=== PATIENT | male | born 1940 | race Caucasian/White ===

== ENCOUNTER 2022-03-12 11:09 | Inpatient (IN) | payer MEDICARE, OTHER ==
[2022-03-12 11:17] LABS: Glucose,Whole Blood 82 mg/dL (70-110)
--- NOTE | 2022-03-12 11:24 | ED ---
General Adult HPI - General Stated complaint: Stroke Time Seen by Provider: 03/12/22 11:13 Source: patient, EMS, RN notes reviewed Mode of arrival: EMS Limitations: physical limitation - History of Present Illness Initial comments: Patient is a pleasant 81-year-old male presenting to the emergency Department with concerns for stroke. Onset of symptoms was yesterday afternoon, possibly around 5 PM. Patient denies any confusion. Patient states speech is mostly normal. Patient does have difficulty with ambulation. Patient also has left arm weakness. No history of similar symptoms previously. Patient denies any trauma or head injury. No headache. - Related Data Home Medications Medication Instructions Recorded Confirmed ALPRAZolam [Xanax] 1 mg PO TID 03/14/15 03/12/22 Aspirin EC [Ecotrin Low Dose] 81 mg PO DAILY 03/12/22 03/12/22 HYDROcodone/APAP 5-325MG [[place] 1 tab PO Q4HR PRN 03/12/22 03/12/22 5-325] Lisinopril-Hctz 10-12.5 mg 1 tab PO DAILY 03/12/22 03/12/22 [Zestoretic 10-12.5] Sulfamethox-Tmp 800-160Mg [Bactrim 1 tab PO Q12HR 03/12/22 03/12/22 DS 800-160 mg] Tamsulosin [Flomax] 0.4 mg PO DAILY 03/12/22 03/12/22 Allergies Allergy/AdvReac Type Severity Reaction Status Date / Time amylase [From Creon] Allergy Unknown Verified 03/12/22 11:59 lipase [From Creon] Allergy Unknown Verified 03/12/22 11:59 naproxen [From Naprosyn] Allergy Unknown Verified 03/12/22 11:59 protease [From Creon] Allergy Unknown Verified 03/12/22 11:59 Review of Systems ROS Statement: Those systems with pertinent positive or pertinent negative responses have been documented in the HPI. ROS Other: All systems not noted in ROS Statement are negative. Constitutional: Denies: fever Eyes: Denies: eye pain ENT: Denies: ear pain Respiratory: Denies: cough Cardiovascular: Denies: chest pain Endocrine: Denies: fatigue Gastrointestinal: Denies: abdominal pain Genitourinary: Denies: dysuria Musculoskeletal: Denies: back pain Skin: Denies: rash Neurological: Reports: as per HPI, weakness, abnormal gait. Denies: headache 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 NO TX FOR FAR DR GAMBINO, KIDNEY STONE, STATED:I THINK HE WAS TOLD HE HAS A FATTY LIVER", History of Any Multi-Drug Resistant Organisms: None Reported Past Surgical History: Back Surgery, Cholecystectomy, Hernia Repair Additional Past Surgical History / Comment(s): PROSTATE BX,COLONOSCOPY,HEMORRHOIDECTOMY,, HERNIA REPAIR W/MESH, KSINEY STONES REMOVED Past Anesthesia/Blood Transfusion Reactions: No Reported Reaction Past Psychological History: Anxiety Additional Psychological History / Comment(s): TAKES XANAX Past Alcohol Use History: None Reported Additional Past Alcohol Use History / Comment(s): STARTED 1961,QUIT 1971 Past Drug Use History: None Reported - Past Family History Father Family Medical History: Cancer Additional Family Medical History / Comment(s): LUNG Mother History Unknown: Yes Additional Family Medical History / Comment(s): IN CORRECTION OF OLD AGE. General Exam Limitations: physical limitation General appearance: alert, in no apparent distress Head exam: Present: atraumatic Eye exam: Present: normal appearance, PERRL. Absent: EOMI (Difficulty moving her eyes towards the left.) Neck exam: Present: normal inspection Respiratory exam: Present: normal lung sounds bilaterally Cardiovascular Exam: Present: regular rate, normal rhythm GI/Abdominal exam: Present: soft. Absent: tenderness Extremities exam: Present: normal inspection Neurological exam: Present: alert, oriented X3, motor sensory deficit (Left upper and lower extremity). Absent: CN II-XII intact (Difficulty moving her eyes towards the left. Left facial droop.) Expanded Neurological exam: Present: protecting the airway Patient oriented to: Present: person, place, time Speech: Present: fluid speech Cranial nerves: EOM's Intact: Abnormal Left, Facial Sensation: Normal Sensory exam: Upper Extremity Light Touch: Normal, Lower Extremity Light Touch: Normal Motor strength exam: RUE: 5, LUE: 0, RLE: 5, LLE: 2/1 Eye Response: (4) open spontaneously Motor Response: (6) obeys commands Verbal Response: (5) oriented Psychiatric exam: Present: normal affect, normal mood Skin exam: Present: normal color Course Vital Signs 03/12/22 11:20 Temperature 97.5 F L Pulse Rate 73 Respiratory 17 Rate Blood Pressure 185/102 O2 Sat by Pulse 98 Oximetry - Reevaluation(s) Reevaluation #1: 03/12/22 12:37 Case again discussed with who will review CTA and call if further intervention needed, however it is unlikely. EKG Findings - EKG Comments: EKG Findings:: Sinus rhythm at 63. PVC present. MT 180. QRS 117. QT 434. QTC 442. Normal axis. LVH criteria. No acute ST change. Medical Decision Making - Medical Decision Making Case was discussed with neurology, Dr. davidson did review computed tomography scan and did notice completed stroke. He does recommend admission with aspirin and brilenta. Case also discussed with Dr. Lizama, who will admit his patient. Patient reevaluated and unchanged. Patient updated. - Lab Data Result diagrams: 03/12/22 11:27 03/12/22 11:27 Lab Results 03/12/22 03/12/22 03/12/22 Range/Units 11:15 11:27 11:27 WBC 12.7 H (3.8-10.6) k/uL RBC 4.61 (4.30-5.90) m/uL Hgb 13.1 (13.0-17.5) gm/dL Hct 39.8 (39.0-53.0) % MCV 86.3 (80.0-100.0) fL MCH 28.3 (25.0-35.0) pg MCHC 32.8 (31.0-37.0) g/dL RDW 14.5 (11.5-15.5) % Plt Count 167 (150-450) k/uL MPV 7.8 Neutrophils % 77 % Lymphocytes % 15 % Monocytes % 5 % Eosinophils % 1 % Basophils % 0 % Neutrophils # 9.8 H (1.3-7.7) k/uL Lymphocytes # 1.9 (1.0-4.8) k/uL Monocytes # 0.7 (0-1.0) k/uL Eosinophils # 0.2 (0-0.7) k/uL Basophils # 0.1 (0-0.2) k/uL PT 10.2 (9.0-12.0) sec INR 0.9 (<1.2) APTT 22.2 (22.0-30.0) sec Sodium (137-145) mmol/L Potassium (3.5-5.1) mmol/L Chloride (98-107) mmol/L Carbon Dioxide (22-30) mmol/L Anion Gap mmol/L BUN (9-20) mg/dL Creatinine (0.66-1.25) mg/dL Est GFR (CKD-EPI)AfAm (>60 ml/min/1.73 sqM) Est GFR (CKD-EPI)NonAf (>60 ml/min/1.73 sqM) Glucose (74-99) mg/dL POC Glucose (mg/dL) 82 (70-110) mg/dL POC Glu Implementation Engineer ID Shannon Cedillo Calcium (8.4-10.2) mg/dL Total Bilirubin (0.2-1.3) mg/dL AST (17-59) U/L ALT (4-49) U/L Alkaline Phosphatase (38-126) U/L Troponin I (0.000-0.034) ng/mL Total Protein (6.3-8.2) g/dL Albumin (3.5-5.0) g/dL 03/12/22 03/12/22 Range/Units 11:27 11:27 WBC (3.8-10.6) k/uL RBC (4.30-5.90) m/uL Hgb (13.0-17.5) gm/dL Hct (39.0-53.0) % MCV (80.0-100.0) fL MCH (25.0-35.0) pg MCHC (31.0-37.0) g/dL RDW (11.5-15.5) % Plt Count (150-450) k/uL MPV Neutrophils % % Lymphocytes % % Monocytes % % Eosinophils % % Basophils % % Neutrophils # (1.3-7.7) k/uL Lymphocytes # (1.0-4.8) k/uL Monocytes # (0-1.0) k/uL Eosinophils # (0-0.7) k/uL Basophils # (0-0.2) k/uL PT (9.0-12.0) sec INR (<1.2) APTT (22.0-30.0) sec Sodium 138 (137-145) mmol/L Potassium 4.1 (3.5-5.1) mmol/L Chloride 106 (98-107) mmol/L Carbon Dioxide 22 (22-30) mmol/L Anion Gap 10 mmol/L BUN 20 (9-20) mg/dL Creatinine 1.19 (0.66-1.25) mg/dL Est GFR (CKD-EPI)AfAm 67 (>60 ml/min/1.73 sqM) Est GFR (CKD-EPI)NonAf 58 (>60 ml/min/1.73 sqM) Glucose 110 H (74-99) mg/dL POC Glucose (mg/dL) (70-110) mg/dL POC Glu Implementation Engineer ID Calcium 8.8 (8.4-10.2) mg/dL Total Bilirubin 0.4 (0.2-1.3) mg/dL AST 24 (17-59) U/L ALT 11 (4-49) U/L Alkaline Phosphatase 71 (38-126) U/L Troponin I 0.044 H* (0.000-0.034) ng/mL Total Protein 7.1 (6.3-8.2) g/dL Albumin 4.0 (3.5-5.0) g/dL - Radiology Data Radiology results: report reviewed (Reviewed with neurologist. Computed tomography scan of the brain acute infarct right LEAD HOUSEKEEPER. CTA shows right ICA occlusion level of carotid bulb. Severe focal stenosis proximal he 4 segment left vertebral artery. Distal left vertebral artery occlusion. Right ICA occlusion. Moderate stenosis rel l) Critical Care Time Critical Care Time: Yes Total Critical Care Time: 33 Disposition Clinical Impression: Cerebrovascular accident (CVA) Disposition: ADMITTED IP TO THIS HOSP Is patient prescribed a controlled substance at d/c from ED?: No Time of Disposition: 12:07
[2022-03-12 11:38] LABS: Basophils # (A) 0.1 k/uL (0-0.2); Basophils % (A) 0 %; Eosinophils # (A) 0.2 k/uL (0-0.7); Eosinophils % (A) 1 %; HCT 39.8 % (39.0-53.0); HGB 13.1 gm/dL (13.0-17.5); Lymphocytes # (A) 1.9 k/uL (1.0-4.8); Lymphocytes % (A) 15 %; MCH 28.3 pg (25.0-35.0); MCHC 32.8 g/dL (31.0-37.0); MCV 86.3 fL (80.0-100.0); Mean Platelet Volume 7.8; Monocytes # (A) 0.7 k/uL (0-1.0); Monocytes % (A) 5 %; Neutrophils # (A) 9.8 k/uL (1.3-7.7); Neutrophils % (A) 77 %; Platelet Count 167 k/uL (150-450); RBC 4.61 m/uL (4.30-5.90); RDW 14.5 % (11.5-15.5); WBC 12.7 k/uL (3.8-10.6)
--- NOTE | 2022-03-12 11:45 | CT ---
EXAMINATION TYPE: CT brain wo con DATE OF EXAM: 03/12/2022 COMPARISON: 07/07/2016 HISTORY: 81-year-old male Neuro deficits, acute, stroke suspected. TECHNIQUE: Examination was done in axial plane without intravenous contrast. Coronal and sagittal r econstructions performed. CT DLP: 1280.6 mGycm Automated exposure control for dose reduction was used. FINDINGS: Mild generalized supratentorial volume loss. There is encephalomalacia relating to chronic infarct right occipital lobe though new from the 2016 e xam. New cortical and subcortical hypodensity right parietal lobe extending into the posterior right tempo ral lobe and right occipital parietal junction. Associated sulcal effacement. Some additional new hypodensity posterior right basal ganglia, axial image 31. No evidence for acute intracranial hemorrhage, mass, extra-axial fluid collection, hydrocephalus, her niation, or effacement of basal subarachnoid cisterns background moderate patchy burden of chronic sm all vessel ischemic disease. Benign basal ganglionic calcifications on the left. IMPRESSION: 1. Acute infarct right ASSISTANT CREDIT MANAGER distribution involving the right parietal lobe extending to the posterior right temporal lobe. Involvement of the posterior right basal ganglia. The degree of hypodensity sugg ests greater than 6 hours in duration. No hemorrhagic transformation seen. 2. There is associated sulcal effacement but no midline shift or herniation. 3. Chronic encephalomalacia related to old right occipital lobe infarct though new from 2016.
[2022-03-12 11:47] LABS: Calcium 8.8 mg/dL (8.4-10.2); Potassium 4.1 mmol/L (3.5-5.1); Total Bilirubin 0.4 mg/dL (0.2-1.3); Total Protein 7.1 g/dL (6.3-8.2)
[2022-03-12 11:51] LABS: INR 0.9 (<1.2); Partial Thromboplastin Time 22.2 sec (22.0-30.0); Prothrombin Time 10.2 sec (9.0-12.0)
--- NOTE | 2022-03-12 12:02 | CT ---
EXAMINATION TYPE: CT angio head neck DATE OF EXAM: 03/12/2022 COMPARISON: CT scan same day. Also, prior MRI 08/09/2011 HISTORY: 81-year-old male Neuro deficits, acute, stroke suspected. TECHNIQUE: Contiguous axial scanning of the head and neck performed with IV Contrast, patient injecte d with 65ml mL of Isovue 370. Coronal/sagittal MIP reconstructions performed. 3-D reconstructions gen erated on a dedicated independent workstation. CT DLP: 460.1 mGycm Automated exposure control for dose reduction was used. FINDINGS: NECK: Borderline to mildly enlarged mediastinal lymph nodes partially visualized measuring up to 1.2 cm. M ild emphysematous change in the visualized upper lungs. Degenerative change at both shoulders. Mild atherosclerotic patients with conventional arch vessel branching anatomy. There is moderate atherosclerotic narrowing at the origin of the bilateral vertebral arteries. The ri ght vertebral artery is slightly more dominant. The vessels are otherwise patent throughout their cer vical course. Incidental air within the right foramen transversarium and also scattered throughout additional areas such as the right submental space, likely inadvertently introduced venous air during peripheral line placement. The bilateral common carotid arteries are patent though it moderate to severe atelectatic changes at the bilateral carotid bifurcations. On the right, there is ICA occlusion at the level of the carotid bulb. On the left, there is prominent motion limiting the evaluation but suspected borderline moderate, jus t over 50% stenosis at the level of the carotid bulb. HEAD: There is severe focal atherosclerotic stenosis proximal V4 segment left vertebral artery. After the P ICA branch takeoff, there is loss of vessel opacification. Moderate focal stenosis upper basilar artery. Posterior circulation otherwise appears patent. Again, occlusion of the right ICA but with reconstitution along the supraclinoid portion likely due t o collateral fluoroscopy from the anterior communicating artery. On the left, there is moderate segmental stenoses throughout the carotid siphon. Mild atherosclerotic irregularity within the distal M1 segment right MCA. Anterior circulation otherwise patent. No evident aneurysmal change. On the postcontrast study, we note a left parasellar extra-axial mass measuring 2.4 cm situated along the medial aspect of the anterior pole of the left temporal lobe. This is difficult to identify on t he patient's noncontrast study. In retrospect on the MRI of 08/09/2011, this measured approximately 1 .9 cm. IMPRESSION: NECK: 1. RIGHT ICA OCCLUSION AT THE LEVEL OF THE CAROTID BULB. 2. MODERATE PROXIMAL LEFT ICA STENOSIS JUST OVER 50%. 3. MODERATE ATHEROSCLEROTIC STENOSES AT THE ORIGIN OF THE BILATERAL VERTEBRAL ARTERIES HEAD: 4. SEVERE FOCAL STENOSIS PROXIMAL V4 SEGMENT LEFT VERTEBRAL ARTERY. AFTER THE PICA TAKEOFF, THERE IS DISTAL LEFT VERTEBRAL ARTERY OCCLUSION. 5. MODERATE FOCAL STENOSIS DISTAL BASILAR ARTERY. REMAINDER OF THE POSTERIOR CIRCULATION OTHERWISE AP PEARS PATENT. 6. AGAIN, RIGHT ICA OCCLUSION. THERE IS RECONSTITUTION ALONG THE SUPRACLINOID PORTION LIKELY FROM A P ATENT ANTERIOR COMMUNICATING ARTERY. MILD ATHEROSCLEROTIC IRREGULARITY M1 SEGMENT RIGHT MCA. 7. MULTIPLE SEGMENTS OF MODERATE STENOSES THROUGHOUT THE LEFT CAROTID SIPHON. 8. ON THIS POSTCONTRAST STUDY, WE ARE ABLE TO IDENTIFY A 2.4 CM EXTRA-AXIAL MASS ALONG MEDIAL ASPECT OF THE LEFT MIDDLE CRANIAL FOSSA. FINDINGS COMPATIBLE WITH A MENINGIOMA, SLIGHTLY ENLARGED FROM 1.9 C M BACK IN 2010. DIFFICULT TO IDENTIFY ON THE NONCONTRAST CT.
[2022-03-12] MEDS ORDERED: ASPIRIN 325 MG TAB PO STA (12:07)
[2022-03-12] MEDS ORDERED: TICAGRELOR 90 MG TAB PO STA (12:47)
[2022-03-12] MEDS: SODIUM CHLORIDE 0.9% 1,000 ML IV SCH ×2 (12:50→22:44)
--- NOTE | 2022-03-12 15:07 | XR ---
EXAMINATION TYPE: XR chest 2V DATE OF EXAM: 03/12/2022 COMPARISON: NONE HISTORY: Shortness of breath TECHNIQUE: Frontal and lateral views of the chest are obtained. FINDINGS: Scattered senescent parenchymal changes noted. Hyperinflation compatible with COPD. No evidence for infiltrate. No evidence for atelectasis. Heart size is stable. Mediastinal structures are stable and grossly unremarkable. No evidence for hilar prominence. Degenerative changes dorsal spine. IMPRESSION: 1. No evidence for acute pulmonary disease.
[2022-03-12] MEDS ORDERED: ALPRAZolam 0.5 MG TAB PO PRN (20:51)
[2022-03-12] MEDS: HYDROcodone/APAP 5-325MG 1 EACH TAB PO PRN (21:23)
[2022-03-12] MEDS: TICAGRELOR 90 MG TAB PO SCH (21:23)
[2022-03-12 22:20] LABS: Albumin 3.8 g/dL (3.5-5.0); Potassium 4.1 mmol/L (3.5-5.1); Total Bilirubin 0.4 mg/dL (0.2-1.3); Total Protein 6.8 g/dL (6.3-8.2)
[2022-03-12 22:36] LABS: T4, Free (Free Thyroxine) 1.54 ng/dL (0.78-2.19)
[2022-03-13] MEDS: HYDROcodone/APAP 5-325MG 1 EACH TAB PO PRN ×2 (04:08→23:48)
[2022-03-13] MEDS: TICAGRELOR 90 MG TAB PO SCH ×2 (08:13→21:39)
[2022-03-13] MEDS: ASPIRIN 81 MG PO SCH (08:14)
[2022-03-13] MEDS: PANTOPRAZOLE 40 MG/10 ML VIAL IVP SCH (08:14)
[2022-03-13] MEDS: SODIUM CHLORIDE 0.9% 1,000 ML IV SCH ×2 (08:19→16:28)
[2022-03-13] MEDS ORDERED: ASPIRIN 325 MG TAB PO SCH (09:00)
[2022-03-13 09:11] LABS: Basophils % (A) 1 %; Eosinophils # (A) 0.2 k/uL (0-0.7); Eosinophils % (A) 3 %; HCT 45.1 % (39.0-53.0); HGB 14.5 gm/dL (13.0-17.5); Lymphocytes # (A) 1.2 k/uL (1.0-4.8); Lymphocytes % (A) 15 %; MCH 27.9 pg (25.0-35.0); MCHC 32.2 g/dL (31.0-37.0); MCV 86.9 fL (80.0-100.0); Mean Platelet Volume 7.9; Monocytes # (A) 0.3 k/uL (0-1.0); Monocytes % (A) 4 %; Neutrophils # (A) 5.9 k/uL (1.3-7.7); Neutrophils % (A) 76 %; Platelet Count 164 k/uL (150-450); RBC 5.19 m/uL (4.30-5.90); RDW 14.8 % (11.5-15.5); WBC 7.7 k/uL (3.8-10.6)
[2022-03-13 09:29] LABS: Calcium 9.2 mg/dL (8.4-10.2)
[2022-03-13 09:31] LABS: Potassium 4.6 mmol/L (3.5-5.1)
--- NOTE | 2022-03-13 09:39 | P.CNNES ---
History of Present Illness Consult date: 03/12/22 Requesting physician: Marlon Bennett Reason for Consult: CVA History of Present Illness: Patient is a 81-year-old male came to the hospital by ambulance today at 11:09 AM. Patient states that he was being treated for UTI for "a few weeks". Yesterday he had an appointment with his primary physician. Last night at 1:30 AM he wanted to get up to turn off the TV and the lights, but he had no strength to get off the couch. He was noticing left-sided weakness. Patient denied any trauma, any headache. Patient states that if he goes down on the floor, he cannot get up by himself. He called the ambulance and was brought to the hospital. Patient is not a very good historian. EMS flow sheet not available in the chart. I called and spoke to the patient's on phone. As per patient's , his symptoms started on 03/05/2022. Both of them went to [place]. From there is a came to a restaurant. While in the restaurant, patient started dropping food and not able to use his left arm as well. While he was trying to get up, his right arm was on the arm rest, whereas the left arm and down to the floor. He can back home. Subsequently he was doing fine, until on the day of admission when he somehow missed the bed, went on the floor and could not get up. He was noted to be significantly weak on the left side at that time. Vital signs arrival blood pressure 185/102, pulse is 73 temperature 97.5. Blood tests are normal. Hepatic panel normal. Renal functions normal. Troponin borderline 0.044. CT head showed acute infarct right DIRECT[employer] QUALITY [employer]URANCE distribution involving the right parietal lobe extending to the posterior right temporal lobe. Involvement of the posterior right basal ganglia. The degree of hypodensity suggests greater than 6 hours in duration. No hemorrhagic transformation seen. There is associated sulcal effacement but no midline shift or herniation. Chronic encephalomalacia related to old right occipital lobe infarct, though new from 2016. I personally reviewed computed tomography scan of the head and agree with the findings. EKG shows sinus rhythm with occasional ventricular premature complexes. Chest x-ray negative. Left ventricular hypertrophy. CTA of neck showed right ICA occlusion at the level of the carotid bulb. Moderate proximal left ICA stenosis just over 50%. Moderate atherosclerotic stenosis at the origin of the bilateral vertebral arteries. CTA of head showed severe focal stenosis proximal V4 segment left vertebral artery. After the pica takeoff, there is distal left vertebral artery occlusion. Moderate focal stenosis distal basilar artery. Right ICA occlusion. There is reconstitution along the supraclinoid portion likely from a patent anterior communicating artery. Mild atherosclerotic irregularity M1 segment right MCA. Multiple segments of moderate stenosis throughout the left carotid siphon. 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 This is slightly enlarged from 1.9 cm back in 2011. Patient was evaluated in the ED, and stroke code was activated. ED staff disc ussed case with Dr. Morales and patient was considered not a candidate for TPA as his symptoms have been present for more than 4.5 hours, and he has a completed stroke. She was started on Brilinta. Patient tells me that his last known well was yesterday morning. Patient's home medications include lisinopril/HCTZ, aspirin 81 mg, [place], Flomax. He is lives with his . He has 2 adult sons. He has been using a cane for 2-3 weeks. Otherwise he was not using any device. She denies any alcohol. He was a light smoker, quit 50 years ago. Denies diabetes. He has hypertension. Denies any previous history of CVA. He states that he is vaccinated for covid, but has not received the booster dose. Review of Systems Denies any headache, double vision, slurred speech, numbness tingling. He does have weakness of his shoulders which is chronic. He has bad arthritis. He has difficulty with walking, weakness. No chest pain, abdominal pain nausea vomiting diarrhea. All other review of systems reviewed, noncontributory to the present illness 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 NO TX FOR FAR DR GAMBINO, KIDNEY STONE, STATED:I THINK HE WAS TOLD HE HAS A FATTY LIVER", History of Any Multi-Drug Resistant Organisms: None Reported Past Surgical History: Back Surgery, Cholecystectomy, Hernia Repair Additional Past Surgical History / Comment(s): PROSTATE BX,COLONOSCOPY,HEMORRHOIDECTOMY,, HERNIA REPAIR W/MESH, KSINEY STONES REMOVED Past Anesthesia/Blood Transfusion Reactions: No Reported Reaction Past Psychological History: Anxiety Additional Psychological History / Comment(s): TAKES XANAX Smoking Status: Unknown if ever smoked Past Alcohol Use History: None Reported Additional Past Alcohol Use History / Comment(s): STARTED 1961,QUIT 1971 Past Drug Use History: None Reported - Past Family History Father Family Medical History: Cancer Additional Family Medical History / Comment(s): LUNG Mother History Unknown: Yes Additional Family Medical History / Comment(s): IN [facility] OF OLD AGE. Medications and Allergies Home Medications Medication Instructions Recorded Confirmed Type ALPRAZolam [Xanax] 1 mg PO TID 03/14/15 03/12/22 History Aspirin EC [Ecotrin Low Dose] 81 mg PO DAILY 03/12/22 03/12/22 History HYDROcodone/APAP 5-325MG [[place] 1 tab PO Q4HR PRN 03/12/22 03/12/22 History 5-325] Lisinopril-Hctz 10-12.5 mg 1 tab PO DAILY 03/12/22 03/12/22 History [Zestoretic 10-12.5] Sulfamethox-Tmp 800-160Mg [Bactrim 1 tab PO Q12HR 03/12/22 03/12/22 History DS 800-160 mg] Tamsulosin [Flomax] 0.4 mg PO DAILY 03/12/22 03/12/22 History Allergies Allergy/AdvReac Type Severity Reaction Status Date / Time amylase [From Creon] Allergy Unknown Verified 03/12/22 11:59 lipase [From Creon] Allergy Unknown Verified 03/12/22 11:59 naproxen [From Naprosyn] Allergy Unknown Verified 03/12/22 11:59 protease [From Creon] Allergy Unknown Verified 03/12/22 11:59 Physical Examination - Vital Signs Vital Signs: Vital Signs Temp Pulse Pulse Resp BP BP Pulse Ox 03/12/22 16:40 97.4 F L 53 L 18 152/69 96 03/12/22 15:39 17 03/12/22 13:18 60 17 162/84 97 03/12/22 11:20 97.5 F L 73 17 185/102 98 Intake and Output 03/12/22 03/12/22 03/12/22 06:59 14:59 22:59 Other: Weight 83.915 kg 83.915 kg Patient is an elderly male, in no acute distress. Patient is alert awake oriented to time place and person. Patient states it is 03/09/2022. He knows he is in [facility] and name of the current president. Speech and language functions revealed mild dysarthria but no aphasia. Patient can name and repeat very well. Attention, concentration is intact and fund of knowledge is slightly limited. Detail cognitive function testing deferred. On cranial nerve examination, pupils are equal, round and reacting to light, visual churchill reveal left homonymous hemianopia. His extraocular muscles are intact with no nystagmus. Face has mild left facial droop, central type. His tongue protrudes to the midline. Palatal elevation and sensation normal, hearing is moderately decreased and shoulder shrug normal, facial sensation normal. On muscle strength testing, there is left pronator drift. Patient has weakness of bilateral deltoids from arthritis but his left is weaker than the right. His meat slicer, biceps and triceps appears equal. In the lower extremities hip flexion is 5 on the right, 4 left. Ankle dorsiflexion 5 on the right, 4+5-on the left side. Deep tendon reflexes are 1 in the upper limbs at biceps and brachioradialis, 1 at the knees absent ankles and plantars downgoing bilaterally. Sensory to touch is equal bilaterally, but he does neglect left side on double simultaneous stimulation involving the arm and leg. Cerebellar function showed ataxia for [id number] testing on the left. Tone and bulk of muscles normal. Gait not checked. On general examination, there is no carotid bruit or murmur, S1-S2 audible. Abdomen is soft nontender. No organomegaly, bowel sounds present. Chest is clear. Peripheral pulses are present. No edema. Results - Laboratory Findings CBC and BMP: 03/13/22 08:36 03/13/22 08:36 Abnormal Lab Findings: Abnormal Labs 03/12/22 03/12/22 03/12/22 11:27 11:27 11:27 WBC 12.7 H Neutrophils # 9.8 H Glucose 110 H Troponin I 0.044 H* Assessment and Plan Assessment: * Acute ischemic stroke right [employer]URANCE distribution involving the right parietal lobe extending to the posterior right temporal lobe. There is also involvement of the right basal ganglia. Rule out embolic source. * Vasculopathy, as per CTA report as below. * CTA neck revealed right ICA occlusion at the level of carotid bulb * CTA of the head showed severe focal stenosis proximal V4 segment left vertebral artery. After the pica takeoff, there is distal left vertebral artery occlusion. Moderate focal stenosis distal basilar artery. * Hypertension * Significant osteoarthritis of multiple joints. Plan: * Patient has an acute ischemic stroke in the distribution of the right [employer]ANCE and also involving the right basal ganglia (thalamus). * Patient has failed aspirin regimen. Patient started on Brilinta, loaded with 180 mg and will maintain on 90 mg twice a day. Continue aspirin 81 mg daily with that. * 2-D echo to rule out embolic source * Hemoglobin A1c 5.7 * Lipid panel * Telemetric monitoring rule out paroxysmal atrial fibrillation. * B12 459, folate > 20, TSH 1.71. * DVT prophylaxis: Patient on SCDs. * PT OT, speech therapy * Spoke to patient's in detail. * Neurology will follow. Thank you for the consult. CTA of neck showed right ICA occlusion at the level of the carotid bulb. Moderate proximal left ICA stenosis just over 50%. Moderate atherosclerotic stenosis at the origin of the bilateral vertebral arteries. Patient was not a candidate for TPA or thrombectomy. CTA of head showed severe focal stenosis proximal V4 segment left vertebral artery. After the pica takeoff, there is distal left vertebral artery occlusion. Moderate focal stenosis distal basilar artery. Right ICA occlusion. There is reconstitution along the supraclinoid portion likely from a patent anterior communicating artery. Mild atherosclerotic irregularity M1 segment right MCA. Multiple segments of moderate stenosis throughout the left carotid siphon. 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 This is slightly enlarged from 1.9 cm back in 2011. Time with Patient: Greater than 30
--- NOTE | 2022-03-13 10:30 | P.HPIM ---
History of Present Illness 72-year-old male came in with the complaints of left-sided weakness denied any trauma patient cannot get up, patient is also complaining of some tingling numbness in the right leg patient had a CT of the head which showed acute infar ct in the posterior septal artery distribution involving the right parietal lobe extending into the posterior temporal lobe with involvement of posterior basal ganglia on the right side CT of the neck showed ICA occlusion at the level of carotid On the right side and proximal left ICA stenosis of 50% with a moderate atherosclerosis at the origin of bilateral vertebral arteries the patient is also being treated for UTI as an outpatient is on Bactrim leading to mildly elevated creatinine of 1.25 and patient was given 1.04 patient did take antibiotic for 4 days REVIEW OF SYSTEMS: CONSTITUTIONAL: No fever, no malaise, no fatigue. HEENT: No recent visual problems or hearing problems. Denied any sore throat. CARDIOVASCULAR: No chest pain, orthopnea, PND, no palpitations, no syncope. PULMONARY: No shortness of breath, no cough, no hemoptysis. GASTROINTESTINAL: No diarrhea, no nausea, no vomiting, no abdominal pain. NEUROLOGICAL: As mentioned in HPI HEMATOLOGICAL: Denies any bleeding or petechiae. GENITOURINARY: Denies any burning micturition, frequency, or urgency. MUSCULOSKELETAL/RHEUMATOLOGICAL: Denies any joint pain, swelling, or any muscle pain. ENDOCRINE: Denies any polyuria or polydipsia. The rest of the 14-point review of systems is negative. PHYSICAL EXAMINATION: GENERAL: The patient is alert and oriented x3, not in any acute distress. Well developed, well nourished. HEENT: Pupils are round and equally reacting to light. EOMI. No scleral icterus. No conjunctival pallor. Normocephalic, atraumatic. No pharyngeal erythema. No thyromegaly. CARDIOVASCULAR: S1 and S2 present. No murmurs, rubs, or gallops. PULMONARY: Chest is clear to auscultation, no wheezing or crackles. ABDOMEN: Soft, nontender, nondistended, normoactive bowel sounds. No palpable or ganomegaly. MUSCULOSKELETAL: No joint swelling or deformity. EXTREMITIES: No cyanosis, clubbing, or pedal edema. NEUROLOGICAL: Probably has 4+/5 strength on the right side of the body SKIN: No rashes. Assessment and plan -Acute cerebrovascular accident involving the right [employer]ANT distribution involving the right posterior parietal and temporal lobes and basal ganglia: Patient is on 2 antiplatelet therapy which was started by neurology which will be continued echocardiogram will be obtained ---hypertension hold off on antihypertensive medications as of cerebral vascular accident. Physical therapy and occupational therapy evaluation -Benign prostatic hypertrophy -We'll acute renal failure and mildly elevated creatinine secondary to Bactrim patient received 4 days of antibiotics and patient presently doesn't have any symptoms of UTI recently discontinued antibiotics continue with IV fluids -Benign prostatic hypertrophy -DVT prophylaxis: Lovenox 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 NO TX FOR FAR DR GAMBINO, KIDNEY STONE, STATED:I THINK HE WAS TOLD HE HAS A FATTY LIVER", History of Any Multi-Drug Resistant Organisms: None Reported Past Surgical History: Back Surgery, Cholecystectomy, Hernia Repair Additional Past Surgical History / Comment(s): PROSTATE BX,COLONOSCOPY,HEMORRHOIDECTOMY,, HERNIA REPAIR W/MESH, KSINEY STONES REMOVED Past Anesthesia/Blood Transfusion Reactions: No Reported Reaction Past Psychological History: Anxiety Additional Psychological History / Comment(s): TAKES XANAX Smoking Status: Unknown if ever smoked Past Alcohol Use History: None Reported Additional Past Alcohol Use History / Comment(s): STARTED 1961,QUIT 1971 Past Drug Use History: None Reported - Past Family History Father Family Medical History: Cancer Additional Family Medical History / Comment(s): LUNG Mother History Unknown: Yes Additional Family Medical History / Comment(s): IN [facility] OF OLD AGE. Medications and Allergies Home Medications Medication Instructions Recorded Confirmed Type ALPRAZolam [Xanax] 1 mg PO TID 03/14/15 03/12/22 History Aspirin EC [Ecotrin Low Dose] 81 mg PO DAILY 03/12/22 03/12/22 History HYDROcodone/APAP 5-325MG [[place] 1 tab PO Q4HR PRN 03/12/22 03/12/22 History 5-325] Lisinopril-Hctz 10-12.5 mg 1 tab PO DAILY 03/12/22 03/12/22 History [Zestoretic 10-12.5] Sulfamethox-Tmp 800-160Mg [Bactrim 1 tab PO Q12HR 03/12/22 03/12/22 History DS 800-160 mg] Tamsulosin [Flomax] 0.4 mg PO DAILY 03/12/22 03/12/22 History Allergies Allergy/AdvReac Type Severity Reaction Status Date / Time amylase [From Creon] Allergy Unknown Verified 03/12/22 11:59 lipase [From Creon] Allergy Unknown Verified 03/12/22 11:59 naproxen [From Naprosyn] Allergy Unknown Verified 03/12/22 11:59 protease [From Creon] Allergy Unknown Verified 03/12/22 11:59 Physical Exam Vitals: Vital Signs Temp Pulse Pulse Resp BP BP Pulse Ox 03/13/22 08:00 62 16 142/69 96 03/13/22 04:00 97.6 F 74 18 183/86 100 03/13/22 02:00 16 03/12/22 23:53 97.9 F 57 L 16 158/79 95 03/12/22 21:16 98 03/12/22 20:00 97.6 F 60 18 178/76 97 03/12/22 16:40 97.4 F L 53 L 18 152/69 96 03/12/22 15:39 17 03/12/22 13:18 60 17 162/84 97 03/12/22 11:20 97.5 F L 73 17 185/102 98 FiO2 03/13/22 08:00 03/13/22 04:00 03/13/22 02:00 03/12/22 23:53 03/12/22 21:16 21 03/12/22 20:00 03/12/22 16:40 03/12/22 15:39 03/12/22 13:18 03/12/22 11:20 Intake and Output 03/12/22 03/13/22 03/13/22 22:59 06:59 14:59 Other: Voiding Method Diaper Diaper Diaper External Catheter External Catheter External Catheter # Voids 1 Weight 83.915 kg Results CBC & Chem 7: 03/13/22 08:36 03/13/22 08:36 Labs: Abnormal Lab Results - Last 24 Hours (Table) 03/12/22 03/12/22 03/12/22 Range/Units 09:15 11:27 11:27 WBC 12.7 H (3.8-10.6) k/uL Neutrophils # 9.8 H (1.3-7.7) k/uL Sodium 136 L (137-145) mmol/L Chloride (98-107) mmol/L Carbon Dioxide (22-30) mmol/L Glucose 110 H 110 H (74-99) mg/dL Troponin I (0.000-0.034) ng/mL 03/12/22 03/13/22 Range/Units 11:27 08:36 WBC (3.8-10.6) k/uL Neutrophils # (1.3-7.7) k/uL Sodium (137-145) mmol/L Chloride 108 H (98-107) mmol/L Carbon Dioxide 21 L (22-30) mmol/L Glucose (74-99) mg/dL Troponin I 0.044 H* (0.000-0.034) ng/mL Thrombosis Risk Factor Assmnt - Choose All That Apply Any of the Below Risk Factors Present?: No Each Risk Factor Represents 3 Points: Age 75 years or older Thrombosis Risk Factor Assessment Total Risk Factor Score: 3 Thrombosis Risk Factor Assessment Level: Moderate Risk
[2022-03-13] MEDS ORDERED: BUTALB/APAP/CAFF 50-325-40MG TAB PO PRN (11:44)
[2022-03-13 12:04] LABS: LDL Cholesterol,Calculated 111.7 mg/dL (0.0-131.0); VLDL Calculation 14.34 mg/dL (5.00-40.00)
--- NOTE | 2022-03-13 14:47 | CA ---
Transthoracic Echo Report Name: Kevon Sibley Age: 81 Gender: M : 1940 Exam Date: 03/12/2022 13:13 Exam Location: [facility] Ht (in): 72 Wt (lb): 185 Ordering Physician: Marlon Bennett DO Attending/Referring Phys: Horn Player Anahi Salmeron RDCS Procedure CPT: Indications: Thrombus Cardiac Hx: Technical Quality: Good Contrast 1: Total Dose (mL): Contrast 2: Total Dose (mL): MEASUREMENTS (Male / Female) Normal Values 2D ECHO LV Diastolic Diameter PLAX 5.8 cm 4.2 - 5.9 / 3.9 - 5.3 cm LV Systolic Diameter PLAX 4.4 cm IVS Diastolic Thickness 1.2 cm 0.6 - 1.0 / 0.6 - 0.9 cm LVPW Diastolic Thickness 1.6 cm 0.6 - 1.0 / 0.6 - 0.9 cm LV Relative Wall Thickness 0.5 LA Volume 84.1 cm??? 18 - 58 / 22 - 52 cm??? M-MODE Aortic Root Diameter MM 3.4 cm MV E Point Septal Separation 1.1 cm AV Cusp Separation MM 1.7 cm DOPPLER AV Peak Velocity 328.1 cm/s AV Peak Gradient 43.1 mmHg AV Mean Velocity 242.4 cm/s AV Mean Gradient 26.3 mmHg AV Velocity Time Integral 77.6 cm LVOT Peak Velocity 99.0 cm/s LVOT Peak Gradient 3.9 mmHg MV Area PHT 3.9 cm??? Mitral E Point Velocity 60.5 cm/s Mitral A Point Velocity 66.4 cm/s Mitral E to A Ratio 0.9 MV Deceleration Time 195.3 ms MV E' Velocity 5.4 cm/s Mitral E to MV E' Ratio 11.1 FINDINGS Left Ventricle Normal Left ventricular size, mild wall thickness, left ventricular ejection fraction is estimated at 45-50 %. Right Ventricle Normal right ventricular size and function. Right Atrium Normal right atrial size. Left Atrium Severely increased left atrial volume. Mitral Valve Structurally normal mitral valve. Mild mitral regurgitation. Aortic Valve Aortic valve not well visualized. [id number] aortic stenosis with a peak gradient of 45 mmHg and a mean gradient of 26 mmHg. Mild aortic regurgitation. Tricuspid Valve Structurally normal tricuspid valve. Mild tricuspid regurgitation. Pulmonic Valve Pulmonic valve not well visualized. Pericardium Echo free space anterior to the right ventricle likely represents a fat pad. Aorta Normal size aortic root and proximal ascending aorta. CONCLUSIONS Mild LV systolic dysfunction Mild mitral regurgitation Moderate aortic stenosis Mild aortic regurgitation Echodense lesion attached to the aortic leaflet consider transesophageal echo for further evaluation Previewed by: Dr. Earl Whittaker MD (Electronically Signed) Final Date: 13 March 2022 14:46
[2022-03-13] MEDS: ALPRAZolam 0.25 MG TAB PO PRN (18:09)
--- NOTE | 2022-03-14 02:29 | P.PN ---
Subjective Progress Note Date: 03/13/22 This is a telemedicine neurology follow performed today on 03/13/2022. Patient was seen for a follow-up. Patient is laying comfortably in the bed. 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 He has not seen any neurologist for it. Patient does co mplain of headache 8/10 at this time, pointing to the left nasal region and around the eye. Objective - Vital Signs Vital signs: Vital Signs Temp 98.7 F 03/13/22 23:42 Pulse 58 L 03/13/22 23:42 Resp 18 03/14/22 01:28 BP 172/71 03/13/22 23:42 Pulse Ox 95 03/13/22 23:42 FiO2 21 03/12/22 21:16 Intake & Output 03/13/22 03/13/22 03/14/22 06:59 18:59 06:59 Intake Total 400 Balance 400 Intake: Intake, IV Titration 400 Amount Sodium Chloride 0.9% 1, 400 000 ml @ 100 mls/hr IV . Q10H [facility] Rx#:[id number] Other: Voiding Method Diaper Diaper Diaper External Catheter External Catheter External Catheter # Voids 1 - Exam Patient is alert and awake in no distress. Speech is mildly slurred. Patient continues to have left homonymous hemianopia. Mild left facial droop. Patient's left arm is weaker than the right. Ankle dorsiflexion also weaker on the left. - Labs CBC & Chem 7: 03/13/22 08:36 03/13/22 08:36 Labs: Abnormal Lab Results - Last 24 Hours (Table) 03/13/22 Range/Units 08:36 Chloride 108 H (98-107) mmol/L Carbon Dioxide 21 L (22-30) mmol/L Assessment and Plan Assessment: * Acute ischemic stroke right MEDICATION AID distribution involving the right parietal lobe extending to the posterior right temporal lobe. There is also involvement of the right basal ganglia. Rule out embolic source. * Vasculopathy, as per CTA report as below. * CTA neck revealed right ICA occlusion at the level of carotid bulb * CTA of the head showed severe focal stenosis proximal V4 segment left vertebral artery. After the pica takeoff, there is distal left vertebral artery occlusion. Moderate focal stenosis distal basilar artery. * Hypertension * Cephalalgia, unknown cause * Significant osteoarthritis of multiple joints. Plan: * Patient has an acute ischemic stroke in the distribution of the right MEDICATION AID and also involving the right basal ganglia (thalamus). * Patient has failed aspirin regimen. Patient started on Brilinta, loaded with 180 mg and will maintain on 90 mg twice a day. Continue aspirin 81 mg daily with that. * 2-D echo revealed mild left ventricular systolic dysfunction, mild MR, moderate aortic stenosis, mild aortic regurgitation. Echo dense lesion attached to the aortic leaflet consider transesophageal echo for further evaluation. We will consult cardiology. * Hemoglobin A1c 5.7 * Lipid panel cholesterol 171, LDL 111, HDL 45 and triglycerides 71. Start Lipitor 40 mg daily to target LDL <70 * Telemetric monitoring rule out paroxysmal atrial fibrillation. * B12 459, folate > 20, TSH 1.71. * DVT prophylaxis: Patient on SCDs. * PT OT, speech therapy
[2022-03-14] MEDS: ENOXAPARIN 40 MG/0.4 ML SYRINGE SQ SCH (08:29)
[2022-03-14] MEDS: TAMSULOSIN 0.4 MG CAP.ER.24H PO SCH (08:29)
[2022-03-14] MEDS: PANTOPRAZOLE 40 MG/10 ML VIAL IVP SCH (08:29)
[2022-03-14] MEDS: TICAGRELOR 90 MG TAB PO SCH ×2 (08:30→20:02)
[2022-03-14] MEDS: ATORVASTATIN 40 MG TAB PO SCH (08:30)
[2022-03-14] MEDS: ASPIRIN 81 MG PO SCH (08:30)
[2022-03-14] MEDS: ALPRAZolam 0.25 MG TAB PO PRN (08:30)
--- NOTE | 2022-03-14 11:02 | P.CRDCN ---
History of Present Illness History of present illness: 81-year-old gentleman with history of hypertension and dyslipidemia is referred to us for a transesophageal echo. He presented to Hospital complaining of left- sided weakness. He had some tingling and numbness in the right leg also. Had a computed tomography scan of the brain that revealed an acute infarct involving the right parietal lobe. A CT angiogram showed an occlusion of the right internal carotid artery and a 50% stenosis involving left Carotid Artery. Echocardiogram He Has Normal LV Systolic Function Moderate Aortic Stenosis and an Echo Dense Lesion Attached to the Aortic Valve Leaflets. I advised the patient to undergo transesophageal echo for further evaluation of his aortic valve. His stroke may very well be related to the carotid disease that has already been identified. I will perform the LIBORIO tomorrow he understands risks benefits. His neurological deficit has improved. He does not have symptoms of chest pain difficulty in breathing or syncope. Review of systems: 14 out of 14 review of systems has been performed pertinent set as documented General: The patient is awake and alert, in no distress, and does not appear acutely ill. Skin: Skin is warm and dry and no rashes or lesions are noted. Eye: Pupils are equal, round and reactive to light, extra-ocular movements are intact; there is normal conjunctiva bilaterally. Ears, nose, mouth and throat: There are moist mucous membranes and no oral lesions. Neck: The neck is supple, there is no tenderness or JVD. Cardiovascular: There is a regular rate and rhythm. No , rub or gallop is ap preciated. Grade 4 x 6 ejection systolic murmur in the aortic area Respiratory: Lungs are clear to auscultation, respirations are non-labored, breath sounds are equal. Gastrointestinal: Soft, non-distended, non-tender abdomen without masses or organomegaly noted. There is no rebound or guarding present. Bowel sounds are unremarkable. Back: There is no tenderness to palpation in the midline. There is no obvious deformity. Musculoskeletal: Normal ROM, no tenderness, There is no pedal edema. There is no calf tenderness or swelling. Extremities: No edema. Vascular: Femoral pulse is normal. Posterior tibial pulses are normal .Dorsalis pedis is palpable. Neurological: CN II-XII intact. There are no obvious motor or sensory deficits. Speech is normal. Psychiatric: Cooperative, appropriate mood & affect, normal judgment. Assessment and plan: Moderate aortic stenosis Abnormal 2-D echo CVA Carotid stenosis I will perform a transesophageal echo on him for further evaluation of the abnormality noted on the echo 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 NO [place] FOR FAR DR MAKI, KIDNEY STONE, STATED:I THINK HE WAS TOLD HE HAS A FATTY LIVER", History of Any Multi-Drug Resistant Organisms: None Reported Past Surgical History: Back Surgery, Cholecystectomy, Hernia Repair Additional Past Surgical History / Comment(s): PROSTATE BX,COLONOSCOPY,HEMORRHOIDECTOMY,, HERNIA REPAIR W/MESH, KSINEY STONES REMOVED Past Anesthesia/Blood Transfusion Reactions: No Reported Reaction Past Psychological History: Anxiety Additional Psychological History / Comment(s): TAKES XANAX Smoking Status: Unknown if ever smoked Past Alcohol Use History: None Reported Additional Past Alcohol Use History / Comment(s): STARTED 1961,QUIT 1971 Past Drug Use History: None Reported - Past Family History Father Family Medical History: Cancer Additional Family Medical History / Comment(s): LUNG Mother History Unknown: Yes Additional Family Medical History / Comment(s): IN [facility] OF OLD AGE. Medications and Allergies Home Medications Medication Instructions Recorded Confirmed Type ALPRAZolam [Xanax] 1 mg PO TID 03/14/15 03/12/22 History Aspirin EC [Ecotrin Low Dose] 81 mg PO DAILY 03/12/22 03/12/22 History HYDROcodone/APAP 5-325MG [Talent 1 tab PO Q4HR PRN 03/12/22 03/12/22 History 5-325] Lisinopril-Hctz 10-12.5 mg 1 tab PO DAILY 03/12/22 03/12/22 History [Zestoretic 10-12.5] Sulfamethox-Tmp 800-160Mg [Bactrim 1 tab PO Q12HR 03/12/22 03/12/22 History DS 800-160 mg] Tamsulosin [Flomax] 0.4 mg PO DAILY 03/12/22 03/12/22 History Allergies Allergy/AdvReac Type Severity Reaction Status Date / Time amylase [From Creon] Allergy Unknown Verified 03/12/22 11:59 lipase [From Creon] Allergy Unknown Verified 03/12/22 11:59 naproxen [From Naprosyn] Allergy Unknown Verified 03/12/22 11:59 protease [From Creon] Allergy Unknown Verified 03/12/22 11:59 Physical Exam Vitals: Vital Signs Temp Pulse Resp BP Pulse Ox 03/14/22 08:00 56 L 16 166/85 100 03/14/22 03:29 62 18 165/82 98 03/14/22 01:28 18 03/13/22 23:42 98.7 F 58 L 18 172/71 95 03/13/22 20:00 97.9 F 68 18 142/76 98 03/13/22 16:00 62 16 175/81 92 L 03/13/22 12:00 62 16 157/83 99 Intake and Output 03/13/22 03/14/22 03/14/22 22:59 06:59 14:59 Intake Total 100 Output Total 400 Balance -300 Intake: Oral 100 Output: Urine 400 Other: Voiding Method Diaper Diaper Diaper External Catheter External Catheter External Catheter # Voids 2 Results 03/13/22 08:36 03/13/22 08:36 Lipids 03/13/22 Range/Units 08:36 Triglycerides 71.70 (0.00-149.00) mg/dL Cholesterol 171.00 (0.00-200.00) mg/dL HDL Cholesterol 45.00 (40.00-60.00) mg/dL Cholesterol/HDL Ratio 3.80 Ratio Current Medications Generic Name Dose Route Start Last Admin Trade Name Freq PRN Reason Stop Dose Admin Acetaminophen/Butalbital/Caffeine 1 each 03/13/22 11:44 Butalb/Apap/Caff 50-325-40mg Tab PO Q4HR PRN Headache Hydrocodone Bitart/Acetaminophen 1 each 03/13/22 10:22 03/13/22 23:48 Hydrocodone/Apap 5-325mg 1 Each Tab PO 1 each Q4HR PRN Administration Pain Alprazolam 0.25 mg 03/13/22 10:22 03/14/22 08:30 Alprazolam 0.25 Mg Tab PO 0.25 mg TID PRN Administration Anxiety Aspirin 81 mg 03/13/22 09:00 03/14/22 08:30 Aspirin 81 Mg PO 81 mg DAILY CHAVA Administration Atorvastatin Calcium 40 mg 03/14/22 09:00 03/14/22 08:30 Atorvastatin 40 Mg Tab PO 40 mg DAILY CHAVA Administration Enoxaparin Sodium 40 mg 03/14/22 09:00 03/14/22 08:29 Enoxaparin 40 Mg/0.4 Ml Syringe SQ 40 mg DAILY CHAVA Administration Pantoprazole Sodium 40 mg 03/13/22 09:00 03/14/22 08:29 Pantoprazole 40 Mg/10 Ml Vial IVP 40 mg DAILY CHAVA Administration Tamsulosin HCl 0.4 mg 03/14/22 09:00 03/14/22 08:29 Tamsulosin 0.4 Mg Cap.Er.24h PO 0.4 mg DAILY CHAVA Administration Ticagrelor 90 mg 03/12/22 21:00 03/14/22 08:30 Ticagrelor 90 Mg Tab PO 90 mg BID CHAVA Administration Intake and Output 03/13/22 03/14/22 03/14/22 22:59 06:59 14:59 Intake Total 100 Output Total 400 Balance -300 Intake: Oral 100 Output: Urine 400 Other: Voiding Method Diaper Diaper Diaper External Catheter External Catheter External Catheter # Voids 2 03/13/22 08:36 03/13/22 08:36
--- NOTE | 2022-03-14 12:05 | P.PN ---
Subjective 72-year-old male came in with the complaints of left-sided weakness denied any trauma patient cannot get up, patient is also complaining of some tingling numbness in the right leg patient had a CT of the head which showed acute infarct in the posterior septal artery distribution involving the right parietal lobe extending into the posterior temporal lobe with involvement of posterior basal ganglia on the right side CT of the neck showed ICA occlusion at the level of carotid On the right side and proximal left ICA stenosis of 50% with a modera te atherosclerosis at the origin of bilateral vertebral arteries the patient is also being treated for UTI as an outpatient is on Bactrim leading to mildly elevated creatinine of 1.25 and patient was given 1.04 patient did take antibiotic for 4 days I'm resuming the care of the patient today 03/14/2022 Patient is awake and alert to time, place and person, he knows in the hospital on the date of the percent. He says his left side hemiparesis is a slightly better compared to yesterday. He denies any blurred vision or difficulty swallowing. He had some headache last night, no dizziness. No diarrhea or GI symptoms. No dysuria or urgency. Hemodynamically stable and labs from yesterday was reviewed. Cardiology team were consulted for possible LIBORIO tomorrow for aortic valve lesion. Also patient has moderate aortic stenosis Patient is not a candidate for TPA or thrombectomy given his multiple blood vessel disease. We will discuss and consult vascular surgery team. Objective - Vital Signs Vital signs: Vital Signs Temp 98.7 F 03/13/22 23:42 Pulse 56 L 03/14/22 08:00 Resp 16 03/14/22 08:00 BP 166/85 03/14/22 08:00 Pulse Ox 100 03/14/22 08:00 FiO2 21 03/12/22 21:16 Intake & Output 03/13/22 03/14/22 03/14/22 18:59 06:59 18:59 Intake Total 400 100 Output Total 400 Balance 400 -300 Intake: Intake, IV Titration 400 Amount Sodium Chloride 0.9% 1, 400 000 ml @ 100 mls/hr IV . Q10H [facility] Rx#:[id number] Oral 100 Output: Urine 400 Other: Voiding Method Diaper Diaper Diaper External Catheter External Catheter External Catheter # Voids 2 - Exam GENERAL: The patient is alert and oriented x3, not in any acute distress. Well developed, well nourished. HEENT: Pupils are round and equally reacting to light. EOMI. No scleral icterus. No conjunctival pallor. Normocephalic, atraumatic. No pharyngeal erythema. No thyromegaly. CARDIOVASCULAR: S1 and S2 present. No murmurs, rubs, or gallops. PULMONARY: Chest is clear to auscultation, no wheezing or crackles. ABDOMEN: Soft, nontender, nondistended, normoactive bowel sounds. No palpable organomegaly. MUSCULOSKELETAL: No joint swelling or deformity. EXTREMITIES: No cyanosis, clubbing, or pedal edema. -NEUROLOGICAL: Gross neurological examination did not reveal any focal deficits. Mild left hemiparesis SKIN: No rashes. no petechiae. - Labs CBC & Chem 7: 03/13/22 08:36 03/13/22 08:36 Assessment and Plan Assessment: -Acute cerebrovascular accident involving the right AURICULAR DETOXIFICATION SPECIALIST distribution involving the right posterior parietal and temporal lobes and basal ganglia: Patient is on 2 antiplatelet therapy which was started by neurology. Airplane Cover Maker will perform LIBORIO for patient. Patient is currently On aspirin and Brilinta -Benign prostatic hypertrophy - Moderate aortic stenosis, Mild cardiomyopathy with ejection fraction 45-50%. health services rn on the case. - Multiple vascular occlusive disease, patient left internal carotid artery stenosis about 50% with right ICA occlusion, bilateral vertebral artery stenosis, moderate with focal moderate stenosis of the basilar artery. Consult vascular surgery -Left middle cranial fossa mass, mostly meningioma, recommend follow-up as an outpatient DVT prophylaxis: Lovenox GI prophylaxis: Protonix Physiatry team was consulted for possible rehab Dr. Lizama will resume the care of the patient tomorrow
[2022-03-14] MEDS: HYDROcodone/APAP 5-325MG 1 EACH TAB PO PRN ×2 (15:24→20:01)
--- NOTE | 2022-03-15 01:36 | P.PN ---
Subjective Progress Note Date: 03/14/22 This is a telemedicine neurology follow performed today on 03/14/2022. Patient was seen for a follow-up. Patient is sitting in the recliner. Patient's was also present. As per patient's , his symptoms started on 03/05/2022. Both of them went to [email or web address]. From there is a came to a restaurant. While in the restaurant, patient started dropping food and not able to use his left arm as well. While he was trying to get up, his right arm was on the arm rest, whereas the left arm and down to the floor. He can back home. Subsequently he was doing fine, until on the day of admission when he somehow missed the bed, went on the floor and could not get up. He was noted to be significantly weak on the left side at that time. 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 He has not seen any neurologist for it. Patient does complain of headache 05/05 at this time, pointing to the left nasal region and around the eye. Objective - Vital Signs Vital signs: Vital Signs Temp 98 F 03/14/22 19:55 Pulse 57 L 03/14/22 20:00 Resp 18 03/14/22 20:00 BP 168/83 03/14/22 19:55 Pulse Ox 98 03/14/22 19:55 FiO2 21 03/12/22 21:16 Intake & Output 03/14/22 03/14/22 03/15/22 06:59 18:59 06:59 Intake Total 100 Output Total 400 200 575 Balance -300 -200 -575 Intake: Oral 100 Output: Urine 400 200 575 Other: Voiding Method Diaper Diaper Diaper External Catheter External Catheter External Catheter # Voids 2 2 - Exam Patient is alert and awake in no distress. Speech is mildly slurred. Patient continues to have left homonymous hemianopia. Mild left facial droop. Patient's left arm is weaker than the right. Ankle dorsiflexion also weaker on the left. - Labs CBC & Chem 7: 03/13/22 08:36 03/13/22 08:36 Assessment and Plan Assessment: * Acute ischemic stroke right CLEAR COAT SPRAYER distribution involving the right parietal lobe extending to the posterior right temporal lobe. There is also involvement of the right basal ganglia. Rule out embolic source. * Vasculopathy, as per CTA report as below. * 2-D echo revealed echo dense lesion attached to the aortic valve leaflet. Rule out vegetation. * CTA neck revealed right ICA occlusion at the level of carotid bulb * CTA of the head showed severe focal stenosis proximal V4 segment left vertebral artery. After the pica takeoff, there is distal left vertebral artery occlusion. Moderate focal stenosis distal basilar artery. * Hypertension * Significant osteoarthritis of multiple joints. Plan: * Patient has an acute ischemic stroke in the distribution of the right CLEAR COAT SPRAYER and also involving the right basal ganglia (thalamus). * Patient has failed aspirin regimen. Patient started on Brilinta, loaded with 180 mg and will maintain on 90 mg twice a day. Continue aspirin 81 mg daily with that. * 2-D echo revealed mild left ventricular systolic dysfunction, mild MR, moderate aortic stenosis, mild aortic regurgitation. Echo dense lesion attached to the aortic leaflet. Patient undergoing tea in the morning. Cardi ology input appreciated. * Hemoglobin A1c 5.7 * Lipid panel cholesterol 171, LDL 111, HDL 45 and triglycerides 71. Continue Lipitor 40 mg daily. * Telemetric monitoring rule out paroxysmal atrial fibrillation. * B12 459, folate > 20, TSH 1.71. * DVT prophylaxis: Patient on SCDs. * PT OT, speech therapy * Dr. Darion Verdin Will resume neurology service in the morning.
--- NOTE | 2022-03-15 05:32 | P.CONS ---
History of Present Illness - Chief Complaint Gait disturbance, left hemiparesthesias - History of Present Illness I had the opportunity to see patient for inpatient rehab consultation with regard to gait disturbance. Patient admitted March 12 acute onset left- sided weakness to Dr. Trinh. Seen by neurology, Dr. Larson who diagnosed right MEDICINE TECHNOLOGIST and right parietal and temporal stroke. Noted angiogram CT demonstrated moderate to severe stenosis right and left common carotid, right and left verteb ral and right internal carotid and bulb. Head CT done. PT reports supervision for bed mobility and transfers and minimal assistance for gait 24 feet with roller walker and 10 feet with standard cane. OT and speech therapy prescribed. Previous functional history unobtainable from patient at this time due to confusion. Review of Systems Review of systems: ENT: Denies sneezes or discharge. Eyes: Denies discharge or photophobia. Cardiac: Denies chest pain or palpitation. Pulmonary: Denies cough or shortness of breath. Gastrointestinal: Denies nausea, emesis, constipation, diarrhea. Genitourinary: Denies discharge or frequency. Musculoskeletal: Denies muscle or bone aches. Neurologic: Confusion. Mild distal left weakness. Endocrine: Denies shakes or sweats. Oncology: Denies cancers. Dermatologic: Denies rash, itching, pruritus. ALLERGY/immunology: Denies sneezes, rashes. 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 NO TX FOR FAR DR GAMBINO, KIDNEY STONE, STATED:I THINK HE WAS TOLD HE HAS A FATTY LIVER", History of Any Multi-Drug Resistant Organisms: None Reported Past Surgical History: Back Surgery, Cholecystectomy, Hernia Repair Additional Past Surgical History / Comment(s): PROSTATE BX,COLONOSCOPY,H EMORRHOIDECTOMY,, HERNIA REPAIR W/MESH, KSINEY STONES REMOVED Past Anesthesia/Blood Transfusion Reactions: No Reported Reaction Past Psychological History: Anxiety Additional Psychological History / Comment(s): TAKES XANAX Smoking Status: Unknown if ever smoked Past Alcohol Use History: None Reported Additional Past Alcohol Use History / Comment(s): STARTED 1961,QUIT 1971 Past Drug Use History: None Reported - Past Family History Father Family Medical History: Cancer Additional Family Medical History / Comment(s): LUNG Mother History Unknown: Yes Additional Family Medical History / Comment(s): IN [facility] OF OLD AGE. Medications and Allergies Home Medications Medication Instructions Recorded Confirmed Type ALPRAZolam [Xanax] 1 mg PO TID 03/14/15 03/12/22 History Aspirin EC [Ecotrin Low Dose] 81 mg PO DAILY 03/12/22 03/12/22 History HYDROcodone/APAP 5-325MG [Lucinda 1 tab PO Q4HR PRN 03/12/22 03/12/22 History 5-325] Lisinopril-Hctz 10-12.5 mg 1 tab PO DAILY 03/12/22 03/12/22 History [Zestoretic 10-12.5] Sulfamethox-Tmp 800-160Mg [Bactrim 1 tab PO Q12HR 03/12/22 03/12/22 History DS 800-160 mg] Tamsulosin [Flomax] 0.4 mg PO DAILY 03/12/22 03/12/22 History Allergies Allergy/AdvReac Type Severity Reaction Status Date / Time amylase [From Creon] Allergy Unknown Verified 03/12/22 11:59 lipase [From Creon] Allergy Unknown Verified 03/12/22 11:59 naproxen [From Naprosyn] Allergy Unknown Verified 03/12/22 11:59 protease [From Creon] Allergy Unknown Verified 03/12/22 11:59 Physical Exam Vitals: Vital Signs Temp Pulse Resp BP Pulse Ox 03/15/22 04:00 97.6 F 57 L 16 146/76 99 03/15/22 02:00 55 L 18 03/15/22 00:00 97.5 F L 55 L 18 147/79 96 03/14/22 20:00 57 L 18 03/14/22 19:55 98 F 57 L 18 168/83 98 03/14/22 15:26 57 L 16 136/73 97 03/14/22 12:00 62 16 152/77 99 03/14/22 08:00 56 L 16 166/85 100 Intake and Output 03/14/22 03/14/22 03/15/22 14:59 22:59 06:59 Output Total 200 575 Balance -200 -575 Output: Urine 200 575 Other: Voiding Method Diaper Diaper Diaper External Catheter External Catheter External Catheter # Voids 2 Skin: Atrophic, intact. General: Medium build and comfortable appearance. Head: Normocephalic, atraumatic. Eyes: Symmetric. Pupils equal round. Ears: Symmetric. Hearing within normal limits. Mouth: Clear. Neck: Supple. Carotid without bruit. Cardiac: Regular rate and rhythm. Lungs: Clear anteriorly and posteriorly. Abdomen: Soft active nontender. Extremities: Normal tone. Neurological: Mental status: Alert, cooperative, pleasant. Cranial nerves: Symmetric facial tone and trapezius. Motor: Active movement all 4 limbs. But mild weakness distal left side. Sensation: Intact throughout. DTRs: Symmetric and equal throughout. Mobility: Requires physical assist for bed mobility. Results CBC & Chem 7: 03/13/22 08:36 03/13/22 08:36 Assessment and Plan (1) Cerebrovascular accident (CVA) Current Visit: Yes Status: Acute Code(s): I63.9 - CEREBRAL INFARCTION, UNSPECIFIED SNOMED Code(s): 026767994 (2) Anxiety Current Visit: No Status: Acute Code(s): F41.9 - ANXIETY DISORDER, UNSPECIFIED SNOMED Code(s): 64600592 (3) Dehydration Current Visit: No Status: Acute Code(s): E86.0 - DEHYDRATION SNOMED Code(s): 42015382 Plan: Comments and plan: At this time my physical exam is most significant for the confusion. Patient has not had OT or speech that and we'll follow for therapies today. At this time anticipate the need of a slower paced program such as SNF or subacute rehab. We'll continue follow closely with yourself for possible improvements in mentation.
--- NOTE | 2022-03-15 08:37 | P.PN ---
Subjective Progress Note Date: 03/15/22 Principal diagnosis: CVA The patient is status post cerebrovascular accident. I did notify the patient that 2 weeks ago when he did his normal blood work PSA was elevated to 20. Speech therapy shows probable dementia Objective - Vital Signs Vital signs: Vital Signs Temp 97.6 F 03/15/22 08:00 Pulse 58 L 03/15/22 08:00 Resp 16 03/15/22 08:00 BP 175/87 03/15/22 08:00 Pulse Ox 100 03/15/22 08:00 FiO2 21 03/12/22 21:16 Intake & Output 03/14/22 03/15/22 03/15/22 18:59 06:59 18:59 Output Total 200 725 Balance -200 -725 Output: Urine 200 725 Other: Voiding Method Diaper Diaper External Catheter External Catheter # Voids 2 - Constitutional General appearance: Present: average body habitus - EENT Eyes: Absent: abnormal pupil - Neck Neck: Absent: lymphadenopathy - Respiratory Respiratory: bilateral: CTA - Cardiovascular Rhythm: regular Heart sounds: normal: S1, S2 Abnormal Heart Sounds: Absent: S3 Gallop - Gastrointestinal General gastrointestinal: Present: soft. Absent: tenderness - Integumentary Integumentary: Absent: cellulitis - Neurologic Neurologic: Present: focal deficits - Labs CBC & Chem 7: 03/13/22 08:36 03/13/22 08:36 Assessment and Plan (1) Cerebrovascular accident (CVA) Current Visit: Yes Status: Acute Code(s): I63.9 - CEREBRAL INFARCTION, UNSPECIFIED SNOMED Code(s): 972845504 (2) Anxiety Current Visit: No Status: Acute Code(s): F41.9 - ANXIETY DISORDER, UNSPECIFIED SNOMED Code(s): 20175261 (3) Elevated PSA Current Visit: Yes Status: Acute Code(s): R97.20 - ELEVATED PROSTATE SPECIFIC ANTIGEN [PSA] SNOMED Code(s): 625177457 Plan: Continue rehab. Appreciate PT/OT and speech and multiple consultants. Probable rehab placement.
[2022-03-15] MEDS ORDERED: fentaNYL (PF) 50 MCG/ML 2 ML AMP ONE (08:43)
[2022-03-15] MEDS: BENZOCAINE SPRAY 1 CAN TOPICAL ONE ×2 (08:55→09:25)
[2022-03-15] MEDS ORDERED: IV FLUID CONTINUATION 500 ML IV ONE ×2 (08:59)
[2022-03-15] MEDS ORDERED: fentaNYL (PF) 50 MCG/ML 2 ML AMP IV ONE (09:25)
[2022-03-15] MEDS ORDERED: MIDAZOLAM 2 MG/2 ML VIAL IV ONE (09:25)
[2022-03-15] MEDS: TICAGRELOR 90 MG TAB PO SCH ×2 (10:38→20:15)
[2022-03-15] MEDS: TAMSULOSIN 0.4 MG CAP.ER.24H PO SCH (10:38)
[2022-03-15] MEDS: ASPIRIN 81 MG PO SCH (10:38)
[2022-03-15] MEDS: ATORVASTATIN 40 MG TAB PO SCH (10:39)
[2022-03-15] MEDS: HYDROcodone/APAP 5-325MG 1 EACH TAB PO PRN ×3 (10:39→23:25)
[2022-03-15] MEDS: PANTOPRAZOLE 40 MG/10 ML VIAL IVP SCH (10:42)
[2022-03-15] MEDS: ENOXAPARIN 40 MG/0.4 ML SYRINGE SQ SCH (10:42)
--- NOTE | 2022-03-15 12:26 | ECHOT ---
TRANSESOPHAGEAL ECHOCARDIOGRAM TRANSESOPHAGEAL ECHO: INDICATION: 1. Abnormal 2D echo. 2. Aortic stenosis. PROCEDURE NOTE: After obtaining informed consent, transesophageal echocardiogram was performed in left lateral position using an Omni plane probe. Local and IV sedation were obtained by giving 2 mg of Versed and 25 mcg of fentanyl. The patient tolerated the procedure well without any obvious immediate complications. FINDINGS: 1. Aortic valve: Aortic valve is a 3 leaflet valve, heavily calcified legs, moderate to severe restriction in leaflet mobility. By planimetry, the valve area is 1.1 square cm. There is trace aortic regurgitation noted. Aortic root measures within normal limits. 2. Mitral valve is anatomically normal. There is mild mitral regurgitation noted. Tricuspid valve appears normal. 3. Left ventricle has normal size and systolic function. Left atrium appears enlarged. 4. Interatrial septum: There is no evidence of [id number] shunt by color-flow Doppler or [id number] shunt by agitated saline contrast study. CONCLUSIONS: Moderate to severe aortic stenosis with heavily calcified aortic valve which was responsible for the echodense lesion noted on the echocardiogram. MMODL / IJN: [id number] /
--- NOTE | 2022-03-15 12:39 | US ---
EXAMINATION TYPE: US carotid duplex BILAT DATE OF EXAM: 03/15/2022 COMPARISON: NONE CLINICAL HISTORY: CVA, let sided weakness. EXAM MEASUREMENTS: RIGHT: Peak Systolic Velocity (PSV) cm/sec ----- Right CCA: 36.2 ----- Right ICA: 19.6 ----- Right ECA: 93.0 ICA/CCA ratio: 0.52 RIGHT: End Diastole cm/sec ----- Right CCA: 0.0 ----- Right ICA: 0.0 ----- Right ECA: 0.0 LEFT: Peak Systolic Velocity (PSV) cm/sec ----- Left CCA: 97.6 ----- Left ICA: 149.0 ----- Left ECA: 78.1 ICA/CCA ratio: 1.5 LEFT: End Diastole cm/sec ----- Left CCA: 27.2 ----- Left ICA: 44.7 ----- Left ECA: 1.5 VERTEBRALS (direction of flow): Right Vertebral: Antegrade Left Vertebral: Antegrade Rhythm: Normal Severe atherosclerotic changes, right ICA shows severely low velocities. Left ICA shows mild increase in velocities. IMPRESSION: 1. Moderate stenosis left internal carotid artery between 50 and 69%. 2. Severe to critical stenosis within the right internal carotid artery. Significant velocity fall off may be due to very severe stenosis. Additional workup is recommended. Criteria for Assigning % of Stenosis / Diameter reduction (Estimation based on the indirect measurements of the internal carotid artery velocities (ICA PSV). 1. Normal (no stenosis)=ICA PSV < 125 cm/s: ratio < 2.0: ICA EDV<40 cm/s. 2. Less than 50% stenosis=ICA PSV < 125 cm/s: ratio < 2.0: ICA EDV<40 cm/s. 3. 50 to 69% stenosis=ICA PSV of 125 to 230 cm/s: ration 2.0 ? 4.0: ICA EDV 40-100 cm/s. 4. Greater than 70% stenosis to near occlusion= ICA PSV > 230 cm/s: ratio > 4.0: ICA EDV > 100 cm/s. 5. Near occlusion= ICA PSV velocities may be low or undetectable: variable ratio and ICA EDV. 6. Total occlusion=unable to detect flow.
--- NOTE | 2022-03-15 13:43 | P.GSCN ---
History of Present Illness Consult date: 03/15/22 Reason for Consult: Carotid stenosis Requesting physician: Jay E Sheet History of present illness: This is a pleasant 81-year-old white male who presented to the emergency department on 03/12/2022 with complaints of right-sided weakness. Apparently the patient had been experiencing left-sided weakness in his lower extremities as well as his upper. Apparently he was trying to get off the couch and he was not able to, and the date before they were at a restaurant and he was having difficulty with dropping things out of his hand while trying to eat. She noticed that his left arm was more flaccid than his right. On admission to the emergency department code stroke was called but patient was not considered a candidate for TPA as his symptoms have been present for more than 4 and half hours. Vascular surgery was consulted for ICA stenosis. Patient states he still having some left-sided weakness. Echocardiogram showed normal LV systolic function with moderate aortic stenosis on echo dense lesion attached to the aortic valve leaflets. Patient underwent LIBORIO this morning to further evaluate. With findings of moderate to severe aortic stenosis with heavily calcified aortic valve which was responsible for the echo dense lesion noted on the echocardiogram. He is still having left-sided weakness. Denies any chest pain, shortness of breath, abdominal pain, nausea or vomiting. 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 Associated sulcal of basement but no midline shift or herniation. Chronic encephalomalacia related to old right occipital lobe infarct though new from 2016 CT angiogram head and neck revealed right ICA occlusion at the level of the carotid bulb. Moderate proximal left ICA stenosis just over 50%. Moderate arthrosclerotic stenosis at the origin of the bilateral vertebral arteries. Review of Systems A 14 point review systems was completed all pertinent positives and negatives as stated in the HPI. 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 NO TX FOR FAR DR GAMBINO, KIDNEY STONE, STATED:I THINK HE WAS TOLD HE HAS A FATTY LIVER", History of Any Multi-Drug Resistant Organisms: None Reported Past Surgical History: Back Surgery, Cholecystectomy, Hernia Repair Additional Past Surgical History / Comment(s): PROSTATE BX,COLONOSC OPY,HEMORRHOIDECTOMY,, HERNIA REPAIR W/MESH, KSINEY STONES REMOVED Past Anesthesia/Blood Transfusion Reactions: No Reported Reaction Past Psychological History: Anxiety Additional Psychological History / Comment(s): TAKES XANAX Smoking Status: Unknown if ever smoked Past Alcohol Use History: None Reported Additional Past Alcohol Use History / Comment(s): STARTED 1961,QUIT 1971 Past Drug Use History: None Reported - Past Family History Father Family Medical History: Cancer Additional Family Medical History / Comment(s): LUNG Mother History Unknown: Yes Additional Family Medical History / Comment(s): IN USP OF OLD AGE. Medications and Allergies Home Medications Medication Instructions Recorded Confirmed Type ALPRAZolam [Xanax] 1 mg PO TID 03/14/15 03/12/22 History Aspirin EC [Ecotrin Low Dose] 81 mg PO DAILY 03/12/22 03/12/22 History HYDROcodone/APAP 5-325MG [[place] 1 tab PO Q4HR PRN 03/12/22 03/12/22 History 5-325] Lisinopril-Hctz 10-12.5 mg 1 tab PO DAILY 03/12/22 03/12/22 History [Zestoretic 10-12.5] Sulfamethox-Tmp 800-160Mg [Bactrim 1 tab PO Q12HR 03/12/22 03/12/22 History DS 800-160 mg] Tamsulosin [Flomax] 0.4 mg PO DAILY 03/12/22 03/12/22 History Allergies Allergy/AdvReac Type Severity Reaction Status Date / Time amylase [From Creon] Allergy Unknown Verified 03/12/22 11:59 lipase [From Creon] Allergy Unknown Verified 03/12/22 11:59 naproxen [From Naprosyn] Allergy Unknown Verified 03/12/22 11:59 protease [From Creon] Allergy Unknown Verified 03/12/22 11:59 Surgical - Exam Vital Signs Temp Pulse Resp BP Pulse Ox 97.5 F L 73 17 185/102 98 03/12/22 11:20 03/12/22 11:20 03/12/22 11:20 03/12/22 11:20 03/12/22 11:20 General appearance: The patient is alert, oriented, appears in no acute distress. HET: Head is normocephalic and atraumatic. Pupils are equal and reactive. Neck: Supple without lymphadenopathy. Trachea midline. No audible carotid bruit. Heart: S1 S2. Regular rate and rhythm. Lungs: Clear to auscultation bilaterally. Abdomen: Soft, nontender, nondistended. Extremities: Normal skin color and turgor. Neurological: Slight sided left facial droop. Left extremity weakness compared to right. Patient's speech is fluent, he answers questions appropriately and follows commands. Results - Labs 03/13/22 08:36 03/13/22 08:36 - Imaging Comments: CT of the brain showing acute infarct of the right 2 YEAR OL[employer] distribution involving the right parietal lobe extending to the posterior right temporal lobe involvement of the posterior right basal ganglia degree of hypodensity suggests greater than 6 hours in duration. Associated sulcal of basement but no midline shift or herniation. Chronic encephalomalacia related to old right occipital lobe infarct though new from 2016 CT angiogram head and neck: Neck reports right ICA occlusion at the level carotid bulb. Moderate proximal left ICA stenosis just over 50%. Moderate arthrosclerotic stenosis at the origin of the bilateral vertebral arteries. Head reports severe focal stenosis proximal V4 segment left vertebral artery. After the take the takeoff there is distal left vertebral artery occlusion. Moderate focal stenosis distal basilar artery remainder of the posterior circulation otherwise appears patent. Right ICA occlusion. Reconstitution along the supraclinoid portion likely from a patent anterior communicating artery mild arthrosclerotic irregularity M1 segment right MCA. Multiple segments of moderate stenosis throughout the left carotid siphon. On this postcontrast study we are able to identify a 2.4 cm extra-axial mass along medial aspect of the left middle cranial fossa. Findings compatible with a meningioma slightly enlarged from 1.9 cm back in 2011. Carotid duplex: Moderate stenosis left ICA between 50 and 69%. Most severe to critical stenosis within the right internal carotid artery. Assessment and Plan Assessment: 1. Right ICA occlusion, left ICA stenosis approximately 50% 2. 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 Acute Ischemic stroke in the distribution of the right 2 YEAR OL[employer] TE[employer]ER and right basal ganglia 4. Aortic stenosis 5. History CVA/TIA 6. History hypertension 7. History of prostate cancer Plan: 1. CT angiogram head and neck reviewed by Dr. Mcnamara 2. Continue with medical management including Proventil Lipitor and aspirin 3. Carotid duplex ordered and reviewed 4. No vascular surgical intervention indicated at this time 5. Recommend outpatient follow-up and surveillance to monitor left ICA stenosis 6. Appreciate neurology and cardiology input Thank you for this consultation, we will continue to follow. The impression and plan of care has been dictated as directed. I performed a history and examination of this patient, discussed the same with the dictator. I agree with the dictator's note ,documented as a scribe. Any additional findings or plans will be noted.
[2022-03-15] MEDS: ALPRAZolam 0.25 MG TAB PO PRN ×2 (16:29→23:25)
--- NOTE | 2022-03-15 18:15 | P.PN ---
Subjective Progress Note Date: 03/15/22 I am seeing the patient for the first time during this admission. 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 Patient went for LIBORIO today and it is reported as moderate to severe aortic stenosis with heavily calcified aortic valve which was responsible for the echo dense lesion noted on the echocardiogram. There is no PFO was seen at. Left ventricle has normal size and systolic function. Left atrium appears enlarged. Carotid duplex is reported as moderate stenosis of the left ICA between 50-69. Severe to critical stenosis within the right ICA. Significant velocity fall off may be due to severe stenosis. Additional workup is recommended. Please refer to Dr. Amaya's note for further details. Objective - Vital Signs Vital signs: Vital Signs Temp 97.8 F 03/15/22 16:00 Pulse 58 L 03/15/22 16:00 Resp 16 03/15/22 09:35 BP 123/60 03/15/22 16:00 Pulse Ox 100 03/15/22 16:00 FiO2 21 03/12/22 21:16 Intake & Output 03/14/22 03/15/22 03/15/22 18:59 06:59 18:59 Intake Total 100 Output Total 200 725 450 Balance -200 -725 -350 Intake: IV 100 Output: Urine 200 725 450 Other: Voiding Method Diaper Diaper Urinal External Catheter External Catheter # Voids 2 - Exam GENERAL: The patient is lying in bed and is not in acute distress. NEUROLOGICAL: Higher mental function: The patient is awake, alert, oriented to self, place. Patient is following commands. No aphasia. Cranial nerves: Left homonymous hemianposia. Minimal left facial droop. No dysarthria. Motor: The strength isLeft arm is weaker than right and has weakness over left ankle dorsiflexion Sensation: Sensation is normal to touch throughout. - Labs CBC & Chem 7: 03/13/22 08:36 03/13/22 08:36 Assessment and Plan Assessment: * Acute ischemic stroke right PRIMARY C[employer] NURSE PRACTITIONER distribution involving the right parietal lobe extending to the posterior right temporal lobe. There is also involvement of the right basal ganglia. Seems embolic in nature. The right ICA seems symptomatic in nature. * Vasculopathy, as per CTA report as below. Severe right ICA stenosis and moderate left ICA stenosis 50-69% according to carotid duplex. * Moderate to severe aortic stenosis on LIBORIO. * CTA neck revealed right ICA occlusion at the level of carotid bulb * CTA of the head showed severe focal stenosis proximal V4 segment left vertebral artery. After the pica takeoff, there is distal left vertebral artery occlusion. Moderate focal stenosis distal basilar artery. * Hypertension * Significant osteoarthritis of multiple joints. Plan: * Patient has an acute ischemic stroke in the distribution of the right [employer]IMARY C[employer] NURSE PRACTITIONER and also involving the right basal ganglia (thalamus). * Patient has failed aspirin regimen. Patient started on Brilinta 90mg [address] Larson. Continue aspirin 81 mg daily with that. Continue Lipitor 40 mg daily. From neurological perspective, patient lipitor increased to 80mg daily as protective for carotid plaque. * 2-D echo revealed mild left ventricular systolic dysfunction, mild MR, moder ate aortic stenosis, mild aortic regurgitation. Echo dense lesion attached to the aortic leaflet. * LIBORIO today and it is reported as moderate to severe aortic stenosis with heavily calcified aortic valve which was responsible for the echo dense lesion noted on the echocardiogram. There is no PFO was seen at. Left ventricle has normal size and systolic function. Left atrium appears enlarged. * Will defer managemement of aortic stenosis to cardiology team. * Carotid duplex is reported as moderate stenosis of the left ICA between 50-69. Severe to critical stenosis within the right ICA. Significant velocity fall off may be due to severe stenosis. Vascular surgery team is on board. * Hemoglobin A1c 5.7 * Lipid panel cholesterol 171, LDL 111, HDL 45 and triglycerides 71. * Telemetric monitoring rule out paroxysmal atrial fibrillation. * B12 459, folate > 20, TSH 1.71. * Inpatient rehab is consulted which I feel patient would benefit from. * DVT prophylaxis: On Enoxaparin 40mg daily. * Upon discharge, recommend patient to follow-up with neurologist as outpatient within 1-2 weeks. There is no further neurological work-up. Please notify neurology team if any further concerns. Darion Verdin M.D. Time with Patient: Less than 30
[2022-03-16 04:03] VITALS: RESP 17
[2022-03-16] MEDS: HYDROcodone/APAP 5-325MG 1 EACH TAB PO PRN (06:14)
[2022-03-16] MEDS: ASPIRIN 81 MG PO SCH (08:54)
[2022-03-16] MEDS: TAMSULOSIN 0.4 MG CAP.ER.24H PO SCH (08:54)
[2022-03-16] MEDS: TICAGRELOR 90 MG TAB PO SCH (08:55)
[2022-03-16] MEDS: ALPRAZolam 0.25 MG TAB PO PRN (08:55)
[2022-03-16] MEDS: PANTOPRAZOLE 40 MG/10 ML VIAL IVP SCH (08:58)
[2022-03-16] MEDS: ENOXAPARIN 40 MG/0.4 ML SYRINGE SQ SCH (08:58)
[2022-03-16] MEDS ORDERED: ATORVASTATIN 80 MG TAB PO SCH (09:00)
[2022-03-16] MEDS ORDERED: ALPRAZolam 0.5 MG TAB PO PRN (09:36)
--- NOTE | 2022-03-16 09:41 | P.PN ---
Subjective Principal diagnosis: CVA The patient is status post cerebrovascular accident. I did notify the patient that 2 weeks ago when he did his normal blood work PSA was elevated to 20. Speech therapy shows probable dementia The patient seems more oriented today although neurochecks our office far as his inability to say what year it is. He is asking for up titration of Xanax. Discharge planning for probable rehab placement. Objective - Vital Signs Vital signs: Vital Signs Temp 98.4 F 03/16/22 03:35 Pulse 72 03/16/22 03:35 Resp 17 03/16/22 03:35 BP 165/82 03/16/22 03:35 Pulse Ox 98 03/16/22 03:35 FiO2 21 03/12/22 21:16 Intake & Output 03/15/22 03/16/22 03/16/22 18:59 06:59 18:59 Intake Total 100 240 Output Total 450 225 100 Balance -350 -225 140 Intake: IV 100 Oral 240 Output: Urine 450 225 100 Other: Voiding Method Urinal Urinal - Constitutional General appearance: Present: average body habitus - EENT Eyes: Absent: abnormal pupil - Neck Neck: Absent: lymphadenopathy - Respiratory Respiratory: bilateral: CTA - Cardiovascular Rhythm: regular Heart sounds: normal: S1, S2 Abnormal Heart Sounds: Absent: S3 Gallop - Gastrointestinal General gastrointestinal: Present: soft. Absent: tenderness - Integumentary Integumentary: Absent: cellulitis - Labs CBC & Chem 7: 03/13/22 08:36 03/13/22 08:36 Assessment and Plan (1) Cerebrovascular accident (CVA) Current Visit: Yes Status: Acute Code(s): I63.9 - CEREBRAL INFARCTION, UNSPECIFIED SNOMED Code(s): 391618040 (2) Anxiety Current Visit: No Status: Acute Code(s): F41.9 - ANXIETY DISORDER, UNSPECIFIED SNOMED Code(s): 88994667 (3) Elevated PSA Current Visit: Yes Status: Acute Code(s): R97.20 - ELEVATED PROSTATE SPECIFIC ANTIGEN [PSA] SNOMED Code(s): 009639260 Plan: Continue rehab. Appreciate PT/OT and speech and multiple consultants. Possible inpatient rehab placement. See orders otherwise. Check CBC and CMP in a.m.
--- NOTE | 2022-03-16 11:38 | P.PN ---
Subjective Progress Note Date: 03/16/22 Principal diagnosis: Pleasant 81-year-old that we are seeing in follow-up for carotid stenosis. He was found to have right ICA occlusion and left ICA stenosis 50-69%. He presente d to the emergency department with left-sided weakness and was found to have a right [employer] CONSULTANT/right parietal/temporal lobe infarct. Today he denies any new focal deficits. Does seem as though he has some increased strength activities left upper and lower extremity. States he has not really been up and walking much. Physical therapy, occupational therapy and speech therapy are on consult. Neurology is following patient. They did increase his a atorvastatin to 80 mg daily, he remains on brilinta and aspirin. Objective - Vital Signs Vital signs: Vital Signs Temp 98.4 F 03/16/22 03:35 Pulse 72 03/16/22 03:35 Resp 17 03/16/22 03:35 BP 165/82 03/16/22 03:35 Pulse Ox 98 03/16/22 03:35 FiO2 21 03/12/22 21:16 Intake & Output 03/15/22 03/16/22 03/16/22 18:59 06:59 18:59 Intake Total 100 240 Output Total 450 225 100 Balance -350 -225 140 Intake: IV 100 Oral 240 Output: Urine 450 225 100 Other: Voiding Method Urinal Urinal - Exam General appearance: The patient is alert, oriented, appears in no acute distress. HET: Head is normocephalic and atraumatic. Pupils are equal and reactive. Neck: Supple without lymphadenopathy. Trachea midline. No audible carotid bruit. Heart: S1 S2. Regular rate and rhythm. Lungs: Clear to auscultation bilaterally. Abdomen: Soft, nontender, nondistended. Extremities: Normal skin color and turgor. No cyanosis, rash, ulceration, clubbing, or edema. Right lower extremity mildly cool to the touch. Faint palpable DP. Positive DP and PT Doppler signal bilaterally. Palpable left DP. Neurological: Alert and oriented 3. Tongue protrudes midline, slight left facial droop noted. Very minimal weakness of the left upper and lower extremity compared to the right. Patient answers questions appropriately and follows commands. - Labs CBC & Chem 7: 03/13/22 08:36 03/13/22 08:36 Assessment and Plan Assessment: 1. Right ICA occlusion, left ICA stenosis approximately 50% 2. 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 Acute Ischemic stroke in the distribution of the right [employer] CONSULTANT and right basal ganglia 4. Aortic stenosis 5. History CVA/TIA 6. History hypertension 7. History of prostate cancer Plan: 1. CT angiogram head and neck reviewed by Dr. Mcnamara 2. Continue with medical management including Brilinta, Lipitor,and aspirin 3. Carotid duplex ordered and reviewed 4. No vascular surgical intervention indicated at this time 5. Recommend outpatient follow-up and surveillance to monitor left ICA stenosis 6. Appreciate neurology and cardiology input Thank you for this consultation, we will sign off at this time. The impression and plan of care has been dictated as directed. I performed a history and examination of this patient, discussed the same with the dictator. I agree with the dictator's note ,documented as a scribe. Any additional findings or plans will be noted.
[2022-03-16 12:40] VITALS: BP 103/60; PULSE 75; TEMP 99.5
--- NOTE | 2022-03-16 13:12 | P.PN ---
Subjective Progress Note Date: 03/16/22 HISTORY OF PRESENT ILLNESS: Patient is status post LIBORIO revealing moderate to severe aortic stenosis with heavily calcified aortic valve which was responsible for the echodense lesion noted on echocardiogram. Patient examined this point the bedside. He denies chest pain or pressure. Denies shortness of breath. Denies dizziness or lightheadedness. Patient's vital signs are stable. PHYSICAL EXAM: VITAL SIGNS: Reviewed. GENERAL: Well-developed in no acute distress. NECK: Supple. No JVD or thyromegaly LUNGS: Respirations even and unlabored. Lungs essentially clear to auscultation bilaterally. HEART: Regular rate and rhythm. S1 and S2 heard. Systolic murmur noted EXTREMITIES: Normal range of motion. No clubbing or cyanosis. Peripheral pulses intact. No lower extremity edema ASSESSMENT: Acute CVA Carotid stenosis Hypertension PLAN: Continue current cardiac medications Patient is currently stable from a cardiac standpoint Further outpatient workup in terms of patient's aortic stenosis We will sign off. Please reconsult if needed. Nurse practitioner note has been reviewed by physician. Signing provider agrees with the documented findings, assessment, and plan of care. Objective - Vital Signs Vital signs: Vital Signs Temp 99.5 F 03/16/22 12:00 Pulse 75 03/16/22 12:00 Resp 17 03/16/22 03:35 BP 103/60 03/16/22 12:00 Pulse Ox 92 L 03/16/22 12:00 FiO2 21 03/12/22 21:16 Intake & Output 03/15/22 03/16/22 03/16/22 18:59 06:59 18:59 Intake Total 100 480 Output Total 450 225 100 Balance -350 -225 380 Intake: IV 100 Oral 480 Output: Urine 450 225 100 Other: Voiding Method Urinal Urinal Urinal - Labs CBC & Chem 7: 03/13/22 08:36 03/13/22 08:36
--- NOTE | 2022-03-16 14:43 | P.DS ---
Providers Date of admission: 03/12/22 12:07 Attending physician: Jose Juan Lizama Consults: 03/12/22 12:07 Consult Physician Urgent Consulting Provider: Tonny Larson Consult Reason/Comments: cva Do you want consulting provider notified?: Yes 03/13/22 15:51 Consult Physician Routine Consulting Provider: Akash Batres Consult Reason/Comments: possible IPR Do you want consulting provider notified?: Yes 03/14/22 09:37 Consult Physician Urgent Consulting Provider: Karla Samson Consult Reason/Comments: multiple arterial stenosis , carotid and vertebral Do you want consulting provider notified?: Yes Primary care physician: Jose Juan Lizama - Discharge Diagnosis(es) (1) Cerebrovascular accident (CVA) Current Visit: Yes Status: Acute (2) Anxiety Current Visit: No Status: Acute (3) Elevated PSA Current Visit: Yes Status: Acute Plan - Discharge Summary Discharge Rx Participant: Yes New Discharge Prescriptions: New Atorvastatin [Lipitor] 80 mg PO DAILY tab Aspirin 81 mg PO DAILY tab Butalb/APAP/Caff 50-325-40Mg [Fioricet 50-325-40] 1 each PO Q4HR PRN tab PRN Reason: Headache Continue ALPRAZolam [Xanax] 1 mg PO TID Tamsulosin [Flomax] 0.4 mg PO DAILY Sulfamethox-Tmp 800-160Mg [Bactrim DS 800-160 mg] 1 tab PO Q12HR Lisinopril-Hctz 10-12.5 mg [Zestoretic 10-12.5] 1 tab PO DAILY Aspirin EC [Ecotrin Low Dose] 81 mg PO DAILY HYDROcodone/APAP 5-325MG [[place] 5-325] 1 tab PO Q4HR PRN PRN Reason: Pain Discharge Medication List ALPRAZolam [Xanax] 1 mg PO TID 03/14/15 [History] Aspirin EC [Ecotrin Low Dose] 81 mg PO DAILY 03/12/22 [History] HYDROcodone/APAP 5-325MG [[place] 5-325] 1 tab PO Q4HR PRN 03/12/22 [History] Lisinopril-Hctz 10-12.5 mg [Zestoretic 10-12.5] 1 tab PO DAILY 03/12/22 [History] Sulfamethox-Tmp 800-160Mg [Bactrim DS 800-160 mg] 1 tab PO Q12HR 03/12/22 [History] Tamsulosin [Flomax] 0.4 mg PO DAILY 03/12/22 [History] Aspirin 81 mg PO DAILY tab 03/16/22 [Rx] Atorvastatin [Lipitor] 80 mg PO DAILY tab 03/16/22 [Rx] Butalb/APAP/Caff 50-325-40Mg [Fioricet 50-325-40] 1 each PO Q4HR PRN tab 03/16/22 [Rx] Follow up Appointment(s)/Referral(s): Carrington Mcnamara DO [STAFF PHYSICIAN] - 4 Weeks Jose Juan Lizama MD [Primary Care Provider] - 1-2 days Discharge Disposition: TRANSFER TO SNF/ECF
== END 2022-03-16 16:12 | DRG 65 ==
LOC: EC 11:09 → 3SCARD 12:07
PROVIDERS: ADMIT Family Medicine; ATTEND Family Medicine
DX: I63.531 Cerebral infarction due to unspecified occlusion or stenosis of right posterior cerebral artery (principal); G81.94 Hemiplegia, unspecified affecting left nondominant side; I42.9 Cardiomyopathy, unspecified; N39.0 Urinary tract infection, site not specified; N17.9 Acute kidney failure, unspecified; I65.03 Occlusion and stenosis of bilateral vertebral arteries; I65.1 Occlusion and stenosis of basilar artery; I65.23 Occlusion and stenosis of bilateral carotid arteries; M15.9 Polyosteoarthritis, unspecified; N40.0 Benign prostatic hyperplasia without lower urinary tract symptoms; I35.0 Nonrheumatic aortic (valve) stenosis; G93.89 Other specified disorders of brain; R42 Dizziness and giddiness; D32.9 Benign neoplasm of meninges, unspecified; G51.0 Bell's palsy; E78.5 Hyperlipidemia, unspecified; E86.0 Dehydration; F41.9 Anxiety disorder, unspecified; F03.90 Unspecified dementia, unspecified severity, without behavioral disturbance, psychotic disturbance, mood disturbance, and anxiety; I10 Essential (primary) hypertension; Z79.82 Long term (current) use of aspirin; Z79.899 Other long term (current) drug therapy; Z85.46 Personal history of malignant neoplasm of prostate; Z86.73 Personal history of transient ischemic attack (TIA), and cerebral infarction without residual deficits; Z87.891 Personal history of nicotine dependence; Z80.1 Family history of malignant neoplasm of trachea, bronchus and lung; Z90.49 Acquired absence of other specified parts of digestive tract; Z98.890 Other specified postprocedural states; Z88.8 Allergy status to other drugs, medicaments and biological substances; Z87.442 Personal history of urinary calculi
CPT/HCPCS: 36415; 70450; 70496; 70498; 71046; 80048; 80053; 80061; 82607; 82746; 83036; 83735; 84439; 84443; 84484; 85025; 85610; 85730; 93005; 93306; 93312; 93320; 93325; 93880; 94760; 96360; 96361; 99291

== ENCOUNTER 2023-05-20 11:14 | Emergency (ER) | payer MEDICARE, OTHER ==
[2023-05-20 11:31] VITALS: RESP 18
[2023-05-20] MEDS ORDERED: METOCLOPRAMIDE 5 MG/ML 2 ML VIAL IVP STA (11:46)
[2023-05-20] MEDS ORDERED: SODIUM CHLORIDE 0.9% 1,000 ML IV STA (11:46)
--- NOTE | 2023-05-20 13:42 | ED ---
Nausea/Vomiting/Diarrhea HPI - General Chief complaint: Nausea/Vomiting/Diarrhea Stated complaint: Vomiing, diarrhea Time Seen by Provider: 05/20/23 11:34 Source: patient, RN notes reviewed Mode of arrival: EMS Limitations: no limitations - History of Present Illness Initial comments: This is an 82-year-old male who presents to the emergency department for nausea, vomiting, and diarrhea. States that his symptoms started 7 days ago. Believes that he caught this from his , who has the same symptoms and is also being evaluated here in the emergency department today. He has not tried taking anything to manage his symptoms. Denies any associated abdominal pain. Denies any fevers, chills, sore throat, cough, dyspnea, chest pain, palpi tations, abdominal pain, back pain, or headaches. MD complaint: nausea, vomiting, diarrhea Onset/Timin -: days(s) - Related Data Home Medications Medication Instructions Recorded Confirmed ALPRAZolam [Xanax] 1 mg PO TID 03/14/15 03/12/22 Aspirin EC [Ecotrin Low Dose] 81 mg PO DAILY 03/12/22 03/12/22 HYDROcodone/APAP 5-325MG [Mcnary 1 tab PO Q4HR PRN 03/12/22 03/12/22 5-325] Lisinopril-Hctz 10-12.5 mg 1 tab PO DAILY 03/12/22 03/12/22 [Zestoretic 10-12.5] Sulfamethox-Tmp 800-160Mg [Bactrim 1 tab PO Q12HR 03/12/22 03/12/22 DS 800-160 mg] Tamsulosin [Flomax] 0.4 mg PO DAILY 03/12/22 03/12/22 Previous Rx's Medication Instructions Recorded Aspirin 81 mg PO DAILY tab 03/16/22 Atorvastatin [Lipitor] 80 mg PO DAILY tab 03/16/22 Butalb/APAP/Caff 50-325-40Mg 1 each PO Q4HR PRN tab 03/16/22 [Fioricet 50-325-40] Loperamide [Imodium] 2 mg PO DIRECTED PRN #30 cap 05/20/23 Metoclopramide [Reglan] 10 mg PO Q6H PRN #30 tab 05/20/23 Ondansetron Odt [Zofran Odt] 4 mg PO Q8HR PRN #20 tab 05/20/23 cefUROXime axetiL [Ceftin] 500 mg PO BID 10 Days #20 tab 05/20/23 Allergies Allergy/AdvReac Type Severity Reaction Status Date / Time amylase [From Creon] Allergy Unknown Verified 05/20/23 11:31 lipase [From Creon] Allergy Unknown Verified 05/20/23 11:31 naproxen [From Naprosyn] Allergy Unknown Verified 05/20/23 11:31 protease [From Creon] Allergy Unknown Verified 05/20/23 11:31 Review of Systems ROS Statement: Those systems with pertinent positive or pertinent negative responses have been documented in the HPI. ROS Other: All systems not noted in ROS Statement are negative. 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 NO TX FOR FAR DR GAMBINO, KIDNEY STONE, STATED:I THINK HE WAS TOLD HE HAS A FATTY LIVER", History of Any Multi-Drug Resistant Organisms: None Reported Past Surgical History: Back Surgery, Cholecystectomy, Hernia Repair Additional Past Surgical History / Comment(s): PROSTATE BX,COLONOSCOPY,HEMORRHOIDECTOMY,, HERNIA REPAIR W/MESH, KSINEY STONES REMOVED Past Anesthesia/Blood Transfusion Reactions: No Reported Reaction Past Psychological History: Anxiety Smoking Status: Unknown if ever smoked Past Alcohol Use History: None Reported Past Drug Use History: None Reported - Past Family History Father Family Medical History: Cancer Additional Family Medical History / Comment(s): LUNG Mother History Unknown: Yes Additional Family Medical History / Comment(s): IN SENIOR CARE OF OLD AGE. General Exam Limitations: no limitations General appearance: alert, in no apparent distress Head exam: Present: atraumatic, normocephalic, normal inspection Respiratory exam: Present: normal lung sounds bilaterally. Absent: respiratory distress, wheezes, rales, rhonchi, stridor Cardiovascular Exam: Present: regular rate, normal rhythm, normal heart sounds. Absent: systolic murmur, diastolic murmur, rubs, gallop, clicks GI/Abdominal exam: Present: soft, normal bowel sounds. Absent: distended, tenderness, guarding, rebound, rigid Neurological exam: Present: alert, oriented X3, CN II-XII intact Psychiatric exam: Present: normal affect, normal mood Skin exam: Present: warm, dry, intact, normal color. Absent: rash Course Vital Signs 05/20/23 05/20/23 05/20/23 11:27 12:11 14:44 Temperature 97.6 F 97.6 F 97.4 F L Pulse Rate 65 65 68 Respiratory 18 18 18 Rate Blood Pressure 152/71 152/71 189/93 O2 Sat by Pulse 95 95 96 Oximetry 05/20/23 18:03 Temperature 97.8 F Pulse Rate 68 Respiratory 18 Rate Blood Pressure 200/92 O2 Sat by Pulse 97 Oximetry Medical Decision Making - Medical Decision Making This is an 82-year-old male who presents to the emergency department for nausea, vomiting, and diarrhea. Was pt. sent in by a medical professional or institution? @ -No Did you speak to anyone other than the patient for history? @ -No Did you review nursing and triage notes? @ -Yes, and I agree, it is accurate with regards to the patient's symptoms. Were old charts reviewed? @ -No Differential Diagnosis? @ -Differential Nausea and Vomiting: Gastroenteritis, cholecystitis, appendicitis, pancreatitis, migraine, benign positional vertigo, food borne illness, pyelonephritis, irritable bowel syndrome, influenza, Covid, GERD, incarcerated hernia, intestinal obstruction, this is not meant to be an all-inclusive list. EKG interpreted by me (3pts min.)? @ -EKG interpreted by me demonstrating the following: Sinus rhythm. Ventricular rate 67 beats per minute, DC interval 179 ms, QRS duration 110 ms, QTC 398 ms. X-rays interpreted by me (1pt min.)? @ -Not obtained CT interpreted by me (1pt min.)? @ -Not obtained U/S interpreted by me (1pt. min.)? @ -Not obtained What testing was considered but not performed? (CT, X-rays, U/S, labs)? Why? @ -None What meds were considered but not given? Why? @ -None Did you discuss the management of the patient with other professionals? @ -No Did you reconcile home meds? @ -No Was smoking cessation discussed for >3mins.? @ -No Was critical care preformed (if so, how long)? @ -No Were there social determinants of health that impacted care today? How? (Homelessness, low income, unemployed, alcoholism, drug addiction, transportation, low edu. Level, literacy, decrease access to med. care, senior care, rehab)? @ -No Was there de-escalation of care discussed even if they declined? (Discuss DNR or withdrawal of care, Hospice)? @ -No What co-morbidities impacted this encounter? (DM, HTN, Smoking, COPD, CAD, Cancer, CVA, Hep., AIDS, mental health diagnosis, sleep apnea, morbid obesity)? @ -HTN, Hx of CVA Was patient admitted / discharged? @ -Discharged. Lab work obtained revealing signs of dehydration, including hypernatremia, elevated BUN, and an elevated anion gap. He did also have a slightly low blood sugar at 68. Urinalysis also suggestive of infection. Patient treated with IV fluids and Reglan, as he was given Zofran in the ambulance. He did feel significantly improved and was tolerating oral intake afterwards. Recheck of blood sugar found to be 82. Urine was sent for culture and he was given a dose of ceftriaxone. I did recommend admission for dehydrat ion and the UTI, however the Patient spoke with his , and they requested to go home together as long as there was a way for them to get home and they could supervisor opening and picking their prescriptions. Rx for Ceftin, Reglan, Zofran, and Imodium provided with dosing instructions reviewed. Patient discharged home in stable condition. Undiagnosed new problem with uncertain prognosis? @ -None Drug Therapy requiring intensive monitoring for toxicity (Heparin, Nitro, Insulin, Cardizem)? @ -None Were any procedures done? @ -None Diagnosis/symptom? @ -Nausea and vomiting, dehydration, UTI Acute, or Chronic, or Acute on Chronic? @ -Acute Uncomplicated (without systemic symptoms) or Complicated (systemic symptoms)? @ -Complicated Side effects of treatment? @ -None Exacerbation, Progression, or Severe Exacerbation] @ -Not applicable Poses a threat to life or bodily function? @ -Not at this time, however if he cannot increase his fluid intake, it could become more problematic to his health. Return precautions reviewed in depth, the patient is instructed to return to the emergency department with any new, worsening, or concerning symptoms. Patient verbalized understanding. This case was discussed in detail with the attending ED physician, Dr. Bueno. Presentation, findings, and treatment plan discussed in detail as well. - Lab Data Result diagrams: 05/20/23 13:21 05/20/23 13:21 Lab Results 05/20/23 05/20/23 05/20/23 Range/Units 11:54 11:54 13:21 WBC 8.4 (3.8-10.6) k/uL RBC 3.30 L (4.30-5.90) m/uL Hgb 10.4 L (13.0-17.5) gm/dL Hct 30.6 L (39.0-53.0) % MCV 92.6 (80.0-100.0) fL MCH 31.4 (25.0-35.0) pg MCHC 33.9 (31.0-37.0) g/dL RDW 17.2 H (11.5-15.5) % Plt Count 58 L (150-450) k/uL MPV 7.7 Neutrophils % 70 % Lymphocytes % 23 % Monocytes % 6 % Eosinophils % 0 % Basophils % 0 % Neutrophils # 5.9 (1.3-7.7) k/uL Lymphocytes # 1.9 (1.0-4.8) k/uL Monocytes # 0.5 (0-1.0) k/uL Eosinophils # 0.0 (0-0.7) k/uL Basophils # 0.0 (0-0.2) k/uL Manual Slide Review Performed Polychromasia Present Poikilocytosis Slight Anisocytosis Slight Crenated Cell Present Fragmented RBCs Present Sodium (137-145) mmol/L Potassium (3.5-5.1) mmol/L Chloride (98-107) mmol/L Carbon Dioxide (22-30) mmol/L Anion Gap mmol/L BUN (9-20) mg/dL Creatinine (0.66-1.25) mg/dL Est GFR (CKD-EPI)AfAm (>60 ml/min/1.73 sqM) Est GFR (CKD-EPI)NonAf (>60 ml/min/1.73 sqM) Glucose (74-99) mg/dL POC Glucose (mg/dL) (70-110) mg/dL POC Glu Drill Foreman ID Calcium (8.4-10.2) mg/dL Total Bilirubin (0.2-1.3) mg/dL AST (17-59) U/L ALT (4-49) U/L Alkaline Phosphatase (38-126) U/L Total Protein (6.3-8.2) g/dL Albumin (3.5-5.0) g/dL Amylase (30-110) U/L Lipase (23-300) U/L Urine Color Yellow Urine Appearance Cloudy (Clear) Urine pH 6.0 (5.0-8.0) Ur Specific [place] 1.016 (1.001-1.035) Urine Protein Trace H (Negative) Urine Glucose (UA) Negative (Negative) Urine Ketones Trace H (Negative) Urine Blood Trace H (Negative) Urine Nitrite Negative (Negative) Urine Bilirubin Negative (Negative) Urine Urobilinogen <2.0 (<2.0) mg/dL Ur Leukocyte Esterase Large H (Negative) Urine RBC 7 H (0-5) /hpf Urine WBC >182 H (0-5) /hpf Urine WBC Clumps Occasional H (None) /hpf Ur Squamous Epith Cells 1 (0-4) /hpf Urine Bacteria Occasional H (None) /hpf Influenza Type A (PCR) Not Detected (Not Detectd) Influenza Type B (PCR) Not Detected (Not Detectd) RSV (PCR) Not Detected (Not Detectd) SARS-CoV-2 (PCR) Not Detected (Not Detectd) 05/20/23 05/20/23 Range/Units 13:21 14:43 WBC (3.8-10.6) k/uL RBC (4.30-5.90) m/uL Hgb (13.0-17.5) gm/dL Hct (39.0-53.0) % MCV (80.0-100.0) fL MCH (25.0-35.0) pg MCHC (31.0-37.0) g/dL RDW (11.5-15.5) % Plt Count (150-450) k/uL MPV Neutrophils % % Lymphocytes % % Monocytes % % Eosinophils % % Basophils % % Neutrophils # (1.3-7.7) k/uL Lymphocytes # (1.0-4.8) k/uL Monocytes # (0-1.0) k/uL Eosinophils # (0-0.7) k/uL Basophils # (0-0.2) k/uL Manual Slide Review Polychromasia Poikilocytosis Anisocytosis Crenated Cell Fragmented RBCs Sodium 154 H (137-145) mmol/L Potassium 4.3 (3.5-5.1) mmol/L Chloride 111 H (98-107) mmol/L Carbon Dioxide 19 L (22-30) mmol/L Anion Gap 24 mmol/L BUN 25 H (9-20) mg/dL Creatinine 0.83 (0.66-1.25) mg/dL Est GFR (CKD-EPI)AfAm >90 (>60 ml/min/1.73 sqM) Est GFR (CKD-EPI)NonAf 83 (>60 ml/min/1.73 sqM) Glucose 68 L (74-99) mg/dL POC Glucose (mg/dL) 82 (70-110) mg/dL POC Glu Drill Foreman ID Altagracia Aguirre Calcium 7.2 L (8.4-10.2) mg/dL Total Bilirubin 1.0 (0.2-1.3) mg/dL AST 45 (17-59) U/L ALT 28 (4-49) U/L Alkaline Phosphatase 86 (38-126) U/L Total Protein 5.3 L (6.3-8.2) g/dL Albumin 2.8 L (3.5-5.0) g/dL Amylase 42 (30-110) U/L Lipase 36 (23-300) U/L Urine Color Urine Appearance (Clear) Urine pH (5.0-8.0) Ur Specific [place] (1.001-1.035) Urine Protein (Negative) Urine Glucose (UA) (Negative) Urine Ketones (Negative) Urine Blood (Negative) Urine Nitrite (Negative) Urine Bilirubin (Negative) Urine Urobilinogen (<2.0) mg/dL Ur Leukocyte Esterase (Negative) Urine RBC (0-5) /hpf Urine WBC (0-5) /hpf Urine WBC Clumps (None) /hpf Ur Squamous Epith Cells (0-4) /hpf Urine Bacteria (None) /hpf Influenza Type A (PCR) (Not Detectd) Influenza Type B (PCR) (Not Detectd) RSV (PCR) (Not Detectd) SARS-CoV-2 (PCR) (Not Detectd) Disposition Clinical Impression: Dehydration, Nausea and vomiting, UTI (urinary tract infection) Disposition: HOME SELF-CARE Instructions (If sedation given, give patient instructions): Urinary Tract Infection in Men (ED), Acute Nausea and Vomiting (ED), Acute Diarrhea (ED) Additional Instructions: Return to the emergency department with any new, worsening, or concerning symptoms. You can alternate with the Zofran and Reglan as needed for nausea and vomiting. Take the antibiotic as prescribed for 7 days. You can take the Imodium as needed for diarrhea. The instructions are as follows: Take 4 mg (2 capsules) at the first loose stool. Take an additional 2mg (1 capsule) after each loose stool thereafterwards. Do not take more than 16 mg (8 capsules) radha ly. Slowly advance your diet as tolerated and remain well hydrated. Follow up with your primary care provider in 1-2 days. Prescriptions: cefUROXime axetiL [Ceftin] 500 mg PO BID 10 Days #20 tab Loperamide [Imodium] 2 mg PO DIRECTED PRN #30 cap PRN Reason: Diarrhea Metoclopramide [Reglan] 10 mg PO Q6H PRN #30 tab PRN Reason: Nausea And Vomiting Ondansetron Odt [Zofran Odt] 4 mg PO Q8HR PRN #20 tab PRN Reason: Nausea And Vomiting Is patient prescribed a controlled substance at d/c from ED?: No Referrals: Breezy Hernandes MD [Primary Care Provider] - 1-2 days
[2023-05-20 13:55] LABS: Anisocytosis Slight; Basophils % (A) 0 %; Eosinophils % (A) 0 %; HCT 30.6 % (39.0-53.0); HGB 10.4 gm/dL (13.0-17.5); Lymphocytes # (A) 1.9 k/uL (1.0-4.8); Lymphocytes % (A) 23 %; MCH 31.4 pg (25.0-35.0); MCHC 33.9 g/dL (31.0-37.0); MCV 92.6 fL (80.0-100.0); Mean Platelet Volume 7.7; Monocytes # (A) 0.5 k/uL (0-1.0); Monocytes % (A) 6 %; Neutrophils # (A) 5.9 k/uL (1.3-7.7); Neutrophils % (A) 70 %; Poikilocytosis Slight; RDW 17.2 % (11.5-15.5); WBC 8.4 k/uL (3.8-10.6)
[2023-05-20 14:06] LABS: ALT 28 U/L (4-49); African American GFR (CKD) >90 (>60 ml/min/1.73 sqM); Albumin 2.8 g/dL (3.5-5.0); Amylase 42 U/L (30-110); Anion Gap 24 mmol/L; Blood Urea Nitrogen 25 mg/dL (9-20); Calcium 7.2 mg/dL (8.4-10.2); Carbon Dioxide 19 mmol/L (22-30); Chloride 111 mmol/L (98-107); Glucose 68 mg/dL (74-99); Lipase 36 U/L (23-300); Non-African American GFR(CKD) 83 (>60 ml/min/1.73 sqM); Sodium 154 mmol/L (137-145); Total Protein 5.3 g/dL (6.3-8.2)
[2023-05-20 14:09] LABS: Appearance,Urine Cloudy (Clear); Bacteria,Urine Occasional /hpf; Bilirubin,Urine Negative (Negative); Blood,Urine Trace (Negative); Color,Urine Yellow; Glucose,Urine (UA) Negative (Negative); Ketones,Urine Trace (Negative); Leukocyte Esterase,Urine Large (Negative); Nitrite,Urine Negative (Negative); Protein,Urine Trace (Negative); RBC,Urine 7 /hpf (0-5); Specific Gravity,Urine 1.016 (1.001-1.035); Squamous Epithelial Cell,Urine 1 /hpf (0-4); Urobilinogen,Urine <2.0 mg/dL (<2.0); WBC,Urine >182 /hpf (0-5)
[2023-05-20 14:17] LABS: AST 45 U/L (17-59); Potassium 4.3 mmol/L (3.5-5.1)
[2023-05-20] MEDS ORDERED: cefTRIAXone IN SWFI 1,000 MG/10 ML SYRINGE IVP STA (14:17)
[2023-05-20 14:18] LABS: Alkaline Phosphatase 86 U/L (38-126)
[2023-05-20 14:44] LABS: Glucose,Whole Blood 82 mg/dL (70-110)
[2023-05-20 14:47] VITALS: PULSE 68
[2023-05-20] MEDS ORDERED: oxyCODONE-APAP 7.5-325MG 1 EACH TAB PO STA (16:08)
[2023-05-20] MEDS ORDERED: hydrALAZINE HCL 20 MG/ML 1 ML VIAL IVP STA (17:36)
[2023-05-20 18:04] VITALS: BP 200/92; TEMP 97.8
[2023-05-20 18:19] LABS: Platelet Count 58 k/uL (150-450)
[2023-05-20 18:20] LABS: Crenated RBC Present; RBC Fragments Present
[2023-05-20 18:21] LABS: Polychromasia Present
== END 2023-05-20 18:25 | disposition home or self-care (01) ==
LOC: EC 11:14
DX: E86.0 Dehydration (principal); N39.0 Urinary tract infection, site not specified; E87.0 Hyperosmolality and hypernatremia; R11.2 Nausea with vomiting, unspecified; I10 Essential (primary) hypertension; F41.9 Anxiety disorder, unspecified; Z20.822 Contact with and (suspected) exposure to COVID-19; Z79.82 Long term (current) use of aspirin; Z79.899 Other long term (current) drug therapy; Z88.6 Allergy status to analgesic agent; Z91.09 Other allergy status, other than to drugs and biological substances; Z90.49 Acquired absence of other specified parts of digestive tract; Z90.79 Acquired absence of other genital organ(s); Z86.73 Personal history of transient ischemic attack (TIA), and cerebral infarction without residual deficits
CPT/HCPCS: 36415; 93005; 80053; 82150; 83690; 85025; 81001; 87086; 87636; 99285; 96374; 96375 ×2; 96361; J0360; J2765; J0696

== ENCOUNTER → 2023-10-26 | Day surgery (SDC) | payer MEDICARE, OTHER | LOC: ORWHC2ENDO 11:37 | PROVIDERS: ATTEND Internal Medicine Gastroenterology | DX: Z53.8 Procedure and treatment not carried out for other reasons (principal); K62.9 Disease of anus and rectum, unspecified ==